=== PATIENT | male | born 1990 | race Caucasian/White ===

== ENCOUNTER → 2018-11-28 | Outpatient (CLI) | payer BC ==
[2018-11-28 14:09] VITALS: BP 142/82; PULSE 88; TEMP 98.3; BMI 74.0
--- NOTE | 2018-11-28 15:50 | P.HPBAR ---
Bariatric H&P - History & Physicial H&P Date: 11/28/18 History & Physicial: Visit/CC: initial bariatric consult Patient initial contact: Initial weight: 227.386 kg Initial weight in pounds: 501.30 Height: 5 ft 9 in Initial BMI: 74.0 Last weight: Current weight: 227.386 kg Current weight in pounds: 501.30 Current BMI: 74.0 [place] body weight (based on NIH guidelines): 72.575 kg Excess body weight loss: 0.0% The patient is a 28 year-old M who presents for Bariatric Assessment. Patient presents today for new patient bariatric evaluation. Patient has been considering weight loss surgery for many years. Patient at his heaviest was 545 pounds. Recently was 471. Patient is interested in sleeve gastrectomy. He has had 2 family members have answered bypass with associated postoperative complications. Went to a recent seminar with Dr. Patel. Patient suffers from hypertension and is on Hyzaar. Denies DVT or dysphagia. No GERD symptoms. No abdominal surgeries. BMI currently 74. Patient concerned he may have a upper abdominal wall hernia. He does feel a bulge there at times. Review of Systems The patient denies any acute changes in vision or hearing, no dysphagia or odynophagia, no chest pain or shortness of breath, no dysuria or hematuria, no headache, no runny nose, no rectal bleeding or melena, no unexplained weight loss Past Medical History Past Medical History: Hypertension, Osteoarthritis (OA) Additional Past Medical History / Comment(s): low back pain, bilateral hips (L>R), knees (R>L), and ankles (pt believes his issues are due to his weight) History of Any Multi-Drug Resistant Organisms: None Reported Past Surgical History: Adenoidectomy, Tonsillectomy Past Anesthesia/Blood Transfusion Reactions: No Reported Reaction Additional Past Anesthesia/Blood Transfusion Reaction / Comm: No blood transfusionto date Smoking Status: Current every day smoker Past Alcohol Use History: Rare Additional Past Alcohol Use History / Comment(s): started smoking at age 15, currently smokes 1/2 ppd. Past Drug Use History: None Reported - Past Family History Father Family Medical History: Cancer, Diabetes Mellitus, Hypertension Additional Family Medical History / Comment(s): Type 2 DM, throat cancer. Pts paternal grandfather had lung cancer, Type 2 DM, HTN. patients paternal uncle has CHF and Type 2 DM Mother Family Medical History: Cancer Additional Family Medical History / Comment(s): brain cancer Surgical - Exam Vital Signs Temp Pulse BP 98.3 F 88 142/82 11/28/18 13:54 11/28/18 13:54 11/28/18 13:54 Physical exam: General: Well-developed, well-nourished HEENT: Normocephalic, sclerae nonicteric Abdomen: Nontender, nondistended Extremities: No edema Neuro: Alert and oriented Bariatric Assessment & Plan (1) Morbid obesity with BMI of 70 and over, adult Narrative/Plan: 28-year-old male with severe morbid obesity. Patient clearly a good candidate for surgical weight loss procedures. Spent a lot of time with the patient discussing options of sleeve gastrectomy, gastric bypass, and biliopancreatic diversion. Patient remained consisted in sleeve gastrectomy knowing that the anticipated percentage of excess weight loss is somewhat less than the other 2 described procedures. The associated risks were likewise reviewed. We'll plan EGD at this time. Await primary care 1 or and psychiatric evaluation. Patient will follow-up back in the office with us after upcoming EGD is obtained. Status: Acute Bariatric Checklist Checklist: Plan: Checklist: EGD: 1. Hiatal hernia: 2. H. Pylori: HgbA1c: Vitamin D: Smoking: Current every day smoker Primary care physician referral: sadie Palomino Psychiatry clearance: Cardiology clearance: Sleep study: Diet journal: VTE risk score: VTE risk level: Rehab needs at discharge:
== END | disposition home or self-care (01) ==
LOC: BARWHC3 13:43 → EDAGE 14:00 → MERGE 14:00
PROVIDERS: ATTEND Surgery
DX: E66.01 Morbid (severe) obesity due to excess calories (principal); I10 Essential (primary) hypertension; F17.200 Nicotine dependence, unspecified, uncomplicated; Z68.45 Body mass index [BMI] 70 or greater, adult
CPT/HCPCS: 99211

== ENCOUNTER → 2018-12-02 | Outpatient (CLI) | payer BC ==
[2018-12-02 15:05] LABS: HCT 51.2 % (39.0-53.0); MCH 30.6 pg (25.0-35.0); MCHC 33.2 g/dL (31.0-37.0); MCV 92.3 fL (80.0-100.0); Mean Platelet Volume 8.1; Platelet Count 225 k/uL (150-450); RBC 5.55 m/uL (4.30-5.90); WBC 11.6 k/uL (3.8-10.6)
[2018-12-02 20:09] LABS: Iron Saturation 46.48 (15.00-50.00)
[2018-12-02 20:17] LABS: Ferritin 149.1 ng/mL (22.0-322.0); Vitamin D 25 Hydroxy 18.7 ng/mL (30.0-100.0)
[2018-12-02 20:18] LABS: Albumin/Globulin Ratio 1.54 (1.60-3.17); Anion Gap 13.2 mmol/L (4.00-12.00); BUN/Creat Ratio 18.57 Ratio (12.00-20.00); Calcium 8.9 mg/dL (8.7-10.3); Carbon Dioxide 22.8 mmol/L (21.6-31.8); Globulin 2.6 g/dL (1.6-3.3); Potassium 3.9 mmol/L (3.5-5.5); Total Bilirubin 0.6 mg/dL (0.3-1.2); Total Protein 6.6 g/dL (6.2-8.2)
[2018-12-02 20:19] LABS: Folate, Serum >24.0 ng/mL
== END | disposition home or self-care (01) ==
LOC: LABWHC1 14:24
PROVIDERS: ATTEND Surgery
DX: E66.01 Morbid (severe) obesity due to excess calories (principal); D50.8 Other iron deficiency anemias; Z01.818 Encounter for other preprocedural examination
CPT/HCPCS: 36415; 80053; 82306; 82728; 82746; 83540; 83550; 84425; 85027; 93005

== ENCOUNTER 2018-12-30 11:51 | Day surgery (SDC) | payer BC ==
[2018-12-26 16:22] VITALS: BMI 71.7
[~2018-12-30 11:51] MED LIST: LACTATED RINGERS 1,000 ML IV SCH; LIDOCAINE 1% 20 ML VIAL (10MG/ML) FOR IV START INTRADERMA PRN
[2018-12-30 12:18] VITALS: TEMP 97.8
[2018-12-30] MEDS ORDERED: LACTATED RINGERS 1,000 ML IV ONE (12:18)
--- NOTE | 2018-12-30 13:09 | P.GSHP ---
History of Present Illness H&P Date: 12/30/18 Chief Complaint: Morbid obesity, presurgical Patient today for upper endoscopy. Patient is interested in sleeve gastrectomy. Denies dysphagia or GERD symptoms. He is concerned he may have a small upper abdominal wall hernia. BMI 72. Past Medical History Past Medical History: Hypertension, Osteoarthritis (OA) Additional Past Medical History / Comment(s): low back pain, History of Any Multi-Drug Resistant Organisms: None Reported Past Surgical History: Adenoidectomy, Tonsillectomy Past Anesthesia/Blood Transfusion Reactions: No Reported Reaction Additional Past Anesthesia/Blood Transfusion Reaction / Comment(s): No blood transfusionto date Smoking Status: Current every day smoker - Past Family History Father Family Medical History: Cancer, Diabetes Mellitus, Hypertension Additional Family Medical History / Comment(s): Type 2 DM, throat cancer. Pts paternal grandfather had lung cancer, Type 2 DM, HTN. patients paternal uncle has CHF and Type 2 DM Mother Family Medical History: Cancer Additional Family Medical History / Comment(s): brain cancer Medications and Allergies Home Medications Medication Instructions Recorded Confirmed Type Losartan/Hydrochlorothiazide 1 each PO DAILY 11/28/18 12/26/18 History [Hyzaar 100-25 Tablet] Multivit-Min/Folic/Vit K/Lycop 1 each PO DAILY 11/28/18 12/26/18 History [Men's Multivitamin Tablet] Ergocalciferol [Vitamin D2] 50,000 unit PO WE 12/26/18 12/26/18 History Testosterone [Testosterone 1.62% 1 packet TRANSDERM DAILY 12/26/18 12/26/18 History (2500 mg)] Allergies Allergy/AdvReac Type Severity Reaction Status Date / Time Penicillins Allergy Unknown Verified 12/26/18 16:08 Childhood Surgical - Exam Vital Signs Temp Pulse Resp BP Pulse Ox 97.8 F 87 18 148/74 98 12/30/18 12:17 12/30/18 12:17 12/30/18 12:17 12/30/18 12:17 12/30/18 12:17 Physical exam: General: Well-developed, well-nourished HEENT: Normocephalic, sclerae nonicteric Abdomen: Nontender, nondistended Extremities: No edema Neuro: Alert and oriented Assessment and Plan (1) Morbid obesity with BMI of 70 and over, adult Narrative/Plan: Will proceed with upper endoscopy at this time. Current Visit: No Status: Acute Code(s): E66.01 - MORBID (SEVERE) OBESITY DUE TO EXCESS CALORIES; Z68.45 - BODY MASS INDEX (BMI) 70 OR GREATER, ADULT SNOMED Code(s): 422529548
[2018-12-30] MEDS ORDERED: PROPOFOL 10 MG/ML 20 ML VIAL IV ONE (13:14)
[2018-12-30] MEDS ORDERED: LIDOCAINE 1% INJ 10MG/ML (20 ML MDV) ONE (13:14)
[2018-12-30] MEDS ORDERED: MIDAZOLAM 2 MG/2 ML VIAL ONE (13:14)
--- NOTE | 2018-12-30 13:34 | P.PCN ---
Date of Procedure: 12/30/18 Procedure(s) Performed: Preoperative Dx: Morbid obesity, presurgical Postoperative Dx: Diffuse gastritis Procedure: EGD with Bx Anesthesia: Sedation Endoscopist: Dr. Schofield Specimens: Antrum, body Endoscopic Procedure: The patient was on the endoscopy table in the left decubitus position. The Olympus gastroscope was inserted into the oropharynx and passed under direct visualization to the region of the third portion of the duodenum. From that point the scope was slowly withdrawn inspecting all surfac es carefully. There were no neoplastic inflammatory or polypoid lesions throughout the duodenum. The pylorus was widely patent. The stomach was carefully inspected. There was fuse gastritis present. A biopsy of the body of the stomach and of the antrum of the stomach took place. Retroflexion revealed a normal hiatus. The esophagus was then carefully examined. There were no neoplastic inflammatory or polypoid lesions throughout the visualized esophagus. The patient was then taken to the recovery room in stable condition per anesthesia guidelines. Recommendations: Await biopsies results. Begin antiacid therapy. Follow-up in the bariatric center one month.
[2018-12-30 14:29] VITALS: RESP 18
[2018-12-30 15:05] VITALS: BP 134/76; PULSE 80
== END 2018-12-30 14:50 | disposition home or self-care (01) ==
LOC: ORWHC2ENDO 11:51
PROVIDERS: ATTEND Surgery
DX: E66.01 Morbid (severe) obesity due to excess calories (principal); Z68.45 Body mass index [BMI] 70 or greater, adult; F17.200 Nicotine dependence, unspecified, uncomplicated; I10 Essential (primary) hypertension; K29.70 Gastritis, unspecified, without bleeding; M19.90 Unspecified osteoarthritis, unspecified site; Z79.899 Other long term (current) drug therapy; Z82.49 Family history of ischemic heart disease and other diseases of the circulatory system; Z88.0 Allergy status to penicillin; Z80.1 Family history of malignant neoplasm of trachea, bronchus and lung; Z79.890 Hormone replacement therapy; B96.81 Helicobacter pylori [H. pylori] as the cause of diseases classified elsewhere
CPT/HCPCS: 88305; 88342; 43239; J2250; J2001; J2704

== ENCOUNTER → 2018-12-30 | Outpatient (CLI) | payer BC ==
[2018-12-30 13:12] VITALS: BMI 74.6
== END ==
LOC: BARWHC3 08:53
PROVIDERS: ATTEND Surgery
DX: E66.01 Morbid (severe) obesity due to excess calories (principal); Z68.45 Body mass index [BMI] 70 or greater, adult
CPT/HCPCS: 97804

== ENCOUNTER → 2019-01-28 | Outpatient (CLI) | payer BC ==
[2019-01-28 15:25] VITALS: BP 152/79; PULSE 79; RESP 16; TEMP 98.1; BMI 75.5
--- NOTE | 2019-01-28 16:56 | P.BASOAP ---
Subjective Progress Note Date: 01/28/19 Principal diagnosis: Morbid obesity Patient returns after recent EGD as part of his preoperative workup. Patient was found to have diffuse gastritis. On biopsy the patient was found to have significant H. pylori. The patient recently completed his antibiotic course within the last several days. Feels well. No heartburn. No other changes to his history. Objective - Vital Signs Vital signs: Vital Signs Temp 98.1 F 01/28/19 15:22 Pulse 79 01/28/19 15:22 Resp 16 01/28/19 15:22 BP 152/79 01/28/19 15:22 Pulse Ox Intake & Output 01/27/19 01/28/19 01/28/19 18:59 06:59 18:59 Weight 232.041 kg - Exam Abdomen: Soft, nontender, nondistended Assessment/Plan (1) Helicobacter pylori (H. pylori) infection Narrative/Plan: Patient doing well at this time. He and I reviewed the surgical consent form in detail. Risks and benefits discussed. All questions answered. We'll plan follow-up in 1 month from now and we'll obtained urea breath test at that time. Assuming H. pylori is eradicated Will plan sleeve gastrectomy in March. The risks of bleeding, infection, stenosis, stricture, leak, abscess, fistula formation, peritonitis, poor weight loss, reflux, vomiting, conversion to an open procedure, aborting sleeve gastrectomy, [place], PE, DVT, and were discussed. The patient understands and wishes to proceed. Plan: Date: 01/28/19 Initial Weight: 227.386 kg Initial BMI: 74.0 Current Weight: 232.041 kg Current BMI: 75.5 Type of Surgery: Total Volume in Band: Previous Volume: Volume Removed: Volume Added: Band Size:
== END | disposition home or self-care (01) ==
LOC: BARWHC3 14:58
PROVIDERS: ATTEND Surgery
DX: E66.01 Morbid (severe) obesity due to excess calories (principal); A04.8 Other specified bacterial intestinal infections; B96.81 Helicobacter pylori [H. pylori] as the cause of diseases classified elsewhere
CPT/HCPCS: 99211

== ENCOUNTER → 2019-03-29 | Outpatient (CLI) | payer BC ==
[2019-03-29 11:38] LABS: Basophils # (A) 0.1 k/uL (0-0.2); Basophils % (A) 1 %; Eosinophils # (A) 0.1 k/uL (0-0.7); Eosinophils % (A) 1 %; HCT 54.2 % (39.0-53.0); HGB 18.5 gm/dL (13.0-17.5); Lymphocytes # (A) 2.1 k/uL (1.0-4.8); Lymphocytes % (A) 22 %; MCH 30.2 pg (25.0-35.0); MCHC 34.1 g/dL (31.0-37.0); MCV 88.6 fL (80.0-100.0); Monocytes # (A) 0.5 k/uL (0-1.0); Monocytes % (A) 5 %; Neutrophils # (A) 6.7 k/uL (1.3-7.7); Neutrophils % (A) 69 %; Platelet Count 224 k/uL (150-450); RBC 6.12 m/uL (4.30-5.90); WBC 9.7 k/uL (3.8-10.6)
[2019-03-29 12:08] LABS: ALT 54 U/L (4-49); AST 49 U/L (17-59); African American GFR (CKD) >90 (>60 ml/min/1.73 sqM); Albumin 4.3 g/dL (3.5-5.0); Alkaline Phosphatase 81 U/L (38-126); Anion Gap 14 mmol/L; Blood Urea Nitrogen 14 mg/dL (9-20); Calcium 9.2 mg/dL (8.4-10.2); Carbon Dioxide 20 mmol/L (22-30); Chloride 103 mmol/L (98-107); Glucose 106 mg/dL (74-99); Non-African American GFR(CKD) >90 (>60 ml/min/1.73 sqM); Sodium 137 mmol/L (137-145); Total Bilirubin 1.3 mg/dL (0.2-1.3); Total Protein 8.1 g/dL (6.3-8.2)
== END | disposition home or self-care (01) ==
LOC: LABPAT 11:08
PROVIDERS: ATTEND Surgery
DX: Z01.812 Encounter for preprocedural laboratory examination (principal)
CPT/HCPCS: 36415; 80053; 85025

== ENCOUNTER 2019-04-07 11:28 | Inpatient (IN) | payer BC ==
[~2019-04-07 11:28] MED LIST changes: +ACETAMINOPHEN TAB 500 MG TAB PO ONE; +ENOXAPARIN 40 MG/0.4 ML SYRINGE SQ ONE; +HYDROmorphone 0.5 MG/0.5 ML SYRINGE IVP PRN; -LACTATED RINGERS 1,000 ML IV SCH; -LIDOCAINE 1% 20 ML VIAL (10MG/ML) FOR IV START INTRADERMA PRN; +MIDAZOLAM 2 MG/2 ML VIAL IV PRN; +ONDANSETRON 4 MG/2 ML VIAL IVP ONE; +ceFAZolin 3 GM in SODIUM CHLORIDE 0.9% 100 ML IVPB ONE
[2019-04-07] MEDS: LACTATED RINGERS 1,000 ML IV SCH (12:02)
[2019-04-07 12:06] LABS: Glucose,Whole Blood 96 mg/dL (75-99)
[2019-04-07] MEDS ORDERED: LIDOCAINE 1% 20 ML VIAL (10MG/ML) FOR IV START INTRADERMA ONE (12:21)
--- NOTE | 2019-04-07 12:22 | P.GSHP ---
History of Present Illness H&P Date: 04/07/19 Chief Complaint: Morbid obesity Patient here today for elective sleeve gastrectomy. Patient has been interested in weight loss surgery for the past several years. He has been able to lose some weight on his own but not able to keep it off or continue with his weight loss. He is not interested in gastric bypass since he has had family members developed postoperative complications. Applications of his from hypertension. No history of DVT or dysphagia. No reflux symptoms currently. He is concerned about feeling a bulge in the upper abdomen at times. Patient underwent EGD and was found to have significant gastritis with H. pylori. The patient has completed his antibiotic therapy. Urea breath test normal posttreatment. Past Medical History Past Medical History: Hypertension, Osteoarthritis (OA) Additional Past Medical History / Comment(s): low back pain, bilateral hips (L>R), knees (R>L), and ankles (pt believes his issues are due to his weight) History of Any Multi-Drug Resistant Organisms: None Reported Past Surgical History: Adenoidectomy, Tonsillectomy Additional Past Surgical History / Comment(s): EGD Past Anesthesia/Blood Transfusion Reactions: No Reported Reaction Additional Past Anesthesia/Blood Transfusion Reaction / Comment(s): No blood transfusionto date Smoking Status: Current every day smoker Additional Past Alcohol Use History / Comment(s): started smoking at age 15, currently smokes 1/2 ppd. - Past Family History Father Family Medical History: Cancer, Diabetes Mellitus, Hypertension Additional Family Medical History / Comment(s): Type 2 DM, throat cancer. Pts paternal grandfather had lung cancer, Type 2 DM, HTN. patients paternal uncle has CHF and Type 2 DM Mother Family Medical History: Cancer Additional Family Medical History / Comment(s): brain cancer. mat grandma brain cancer Medications and Allergies Home Medications Medication Instructions Recorded Confirmed Type Losartan/Hydrochlorothiazide 1 each PO DAILY 11/28/18 03/28/19 History [Hyzaar 100-25 Tablet] Ergocalciferol [Vitamin D2] 50,000 unit PO WE 12/26/18 03/28/19 History Allergies Allergy/AdvReac Type Severity Reaction Status Date / Time Penicillins Allergy Unknown Verified 03/28/19 14:16 Childhood Surgical - Exam Vital Signs Temp Pulse Resp BP Pulse Ox 97.0 F L 81 16 158/67 95 04/07/19 11:56 04/07/19 11:56 04/07/19 11:56 04/07/19 11:56 04/07/19 11:56 Physical exam: General: Well-developed, well-nourished HEENT: Normocephalic, sclerae nonicteric Abdomen: Nontender, nondistended Extremities: No edema Neuro: Alert and oriented Assessment and Plan (1) Morbid obesity with BMI of 70 and over, adult Narrative/Plan: 29-year-old male with morbid obesity. Patient has done with his preoperative weight loss. We'll proceed with sleeve gastrectomy at this time. The risks of bleeding, infection, stenosis, stricture, leak, abscess, fistula formation, pe ritonitis, poor weight loss, reflux, vomiting, conversion to an open procedure, aborting sleeve gastrectomy, [place], PE, DVT, and were discussed. The patient understands and wishes to proceed. Current Visit: No Status: Acute Code(s): E66.01 - MORBID (SEVERE) OBESITY DUE TO EXCESS CALORIES; Z68.45 - BODY MASS INDEX (BMI) 70 OR GREATER, ADULT SNOMED Code(s): 717249815
[2019-04-07] MEDS ORDERED: KETAMINE 10 MG/ML 20 ML VIAL ONE (12:29)
[2019-04-07] MEDS ORDERED: LIDOCAINE 1% INJ 10MG/ML (20 ML MDV) ONE (12:29)
[2019-04-07] MEDS ORDERED: MIDAZOLAM 2 MG/2 ML VIAL ONE (12:29)
[2019-04-07] MEDS ORDERED: ePHEDrine SULFATE/0.9% NACL/PF 50 MG/5 ML SYRINGE IV ONE (12:29)
[2019-04-07] MEDS ORDERED: NEOSTIGMINE 1 MG/ML 10 ML VIAL ONE (12:29)
[2019-04-07] MEDS ORDERED: SUCCINYLCHOLINE CHLORIDE 100 MG/5 ML SYR IV ONE (12:29)
[2019-04-07] MEDS ORDERED: ROCURONIUM BROMIDE 10 MG/ML 10 ML VIAL IV ONE (12:29)
[2019-04-07] MEDS ORDERED: GLYCOPYRROLATE 0.2 MG/ML 2 ML VIAL ONE (12:29)
[2019-04-07] MEDS ORDERED: HYDROmorphone (PF) 1 MG/ML ONE (12:29)
[2019-04-07] MEDS ORDERED: PROPOFOL 10 MG/ML 20 ML VIAL IV ONE (12:29)
[2019-04-07] MEDS ORDERED: fentaNYL (PF) 50 MCG/ML 2 ML AMP ONE (12:29)
[2019-04-07] MEDS ORDERED: BUPIVACAINE (PF) 0.25% 30 ML VIAL SQ ONE ×2 (13:16)
[2019-04-07] MEDS ORDERED: LACTATED RINGERS 1,000 ML IV ONE (13:31)
[2019-04-07] MEDS ORDERED: ONDANSETRON 4 MG/2 ML VIAL IVP ONE (15:15)
[2019-04-07] MEDS ORDERED: diphenhydrAMINE 50 MG/ML 1 ML VIAL IVP ONE (15:26)
[2019-04-07] MEDS ORDERED: diphenhydrAMINE 50 MG/ML 1 ML VIAL IVP PRN (15:38)
[2019-04-07] MEDS ORDERED: NALOXONE 0.4 MG/ML 1 ML VIAL IV PRN (15:38)
--- NOTE | 2019-04-07 15:43 | P.OP ---
Date of Procedure: 04/07/19 Procedure(s) Performed: PREOPERATIVE DIAGNOSIS: Morbid obesity, hypertension POSTOPERATIVE DIAGNOSIS: Same PROCEDURE: Laparoscopic sleeve gastrectomy SURGEON: Kanwal EBL: Minimal ANESTHESIA: General COMPLICATIONS: None OPERATIVE PROCEDURE: Patient was placed in the operating table in the supine position. He was placed under general anesthesia at that time. The abdomen was prepped and draped in sterile fashion after the patient was placed in lithotomy. A 5 mm optical trocar was used to enter the abdominal cavity in the left upper quadrant. Insufflation took place to 15 millimeters mercury. An additional right subxiphoid 5 mm trocar was then placed under direct visualization and then removed. 2 additional 5 mm trochars were placed in the right upper quadrant and left upper quadrant under direct visualization and a 15 mm trocar in the supraumbilical location. The liver was retracted using a medium Moisés liver retractor through the right subxiphoid trocar site. The patient's liver was fairly large and floppy. In order to hold the liver properly an additional 5 mm trocar was placed in the left subcostal location and a straight liver retractor was advanced through that. The straight liver retractor was then placed between the Moisés and the left lobe of the liver creating a 3 prong retraction on the liver. This elevated the liver quite nicely. The hiatus was inspected. The patient had no visible hiatal hernia At that point I moved to the mid aspect of the greater curvature the stomach. The short gastric vasculature was divided using a LigaSure device proximally. I then switched and divided the short gastrics distally to a 3-4 cm from the pylorus. The dissection took place up to the left diaphragmatic crura at that point. The posterior short gastrics were likewise divided using the LigaSure device. Once the stomach was fully mobilized the blunt tipped 40-Tamazight bougie dilator was advanced into the stomach and advanced all the way to the prepyloric location. A black echelon 60 stapler without seen guard was utilized and fired tangentially across the antrum taking care to avoid narrowing at the incisura angularis. Subsequent firings of the stapler took place. An additional 60 load with seam guard was utilized at that time. Following that a total of 5 green echelon 60 staplers with seam guard took place proximally staying on the outer edge of our dilator. The oral gastric tube was reinserted. The stomach was insufflated with approximately 100 mL of methylene blue. No evidence of leak or obstruction was seen. The distal aspect of the sleeve was then reapproximated to the gastrosplenic and gastrocolic ligament using a short running 2-0 strata fix suture. This was done to prevent kinking or twisting of the sleeve. Tisseel fibrin glue was used along the length of the staple line at that time. The stomach remnant was removed from the 15 mm trocar site without difficulty. The fascia at the 15 more site was closed using interrupted 0 Vicryl sutures with the laparoscopic suture passer and Moiz Ceci technique. The insufflation was evacuated. The skin at all 6 incisions were closed using 4-0 Monocryl sutures. Skin glue was then applied. DISPOSITION: Stable to recovery room
[2019-04-07] MEDS ORDERED: DEXAMETHASONE SOD PHOSPHATE 4 MG/ML 1 ML VIAL IV ONE (16:01)
[2019-04-07] MEDS ORDERED: SCOPOLAMINE 1.5MG/72HR PATCH TRANSDERM ONE (16:02)
[2019-04-07] MEDS ORDERED: ACETAMINOPHEN IV (For NPO) 1,000 MG in EMPTY BAG 1 BAG IVPB ONE (18:00)
[2019-04-07] MEDS: ALBUTEROL NEBULIZED 2.5 MG/3 ML INHALATION SCH ×2 (18:34)
--- NOTE | 2019-04-07 19:38 | P.CONS ---
History of Present Illness - Reason for Consult Consult date: 04/07/19 Medical management Requesting physician: Todd Franco - Chief Complaint Status post gastric sleeve, hypertension, morbid obesity, severe arthritis - History of Present Illness 29-year-old male with history of morbid obesity one of Dr. Palomino patient with history of hypertension chronic lower back pain who had the chronic anxiety and panic attack has been seen Dr. Mann for many years was referred to Dr. franco for gastric sleeve and was study for the last few month and clear for surgery by Dr. Mann patient ended up going for gastric sleeve today with Dr. manfred weaver with no major complication was admitted to the floor afterward he is doing well mildly drowsy pain is under control and hemodynamically stable continue to have slight abdominal pain around the incision site. Review of Systems CONSTITUTIONAL: Well-developed no acute respiratory distress. Morbidly obese EYES: No icterus sclerae, no conjunctivitis. EARS, NOSE, MOUTH, THROAT, and FACE: No sore throat, lymphadenopathy, carotid bruits or deformity. RESPIRATORY: No SOB cough or wheezes. CARDIOVASCULAR: No CP, Palpitation, PND, Orthopnea, or angina. GASTROINTESTINAL: No Abd pain, Nausea or vomiting, no Diarrhea or constipation, No GI Bleed, no distention or masses. Mild abdominal pain around the incision site. GENITOURINARY: Negative for Hematuria or UTI, no kidney stones. INTEGUMENT/BREAST: Negative for any muscular injury with mild osteoarthritis.. HEMATOLOGIC/LYMPHATIC: Negative for bleed or purpura. MUSCULOSKELTAL: Generalized arthralgia and myalgia. NEURLOGICAL: No LOC, Sz or syncope, blurred vision dizziness or abnormality.. BEHAVIORAL/PSYCH: Negative. ENDOCRINE: Negative. Past Medical History Past Medical History: Hypertension, Osteoarthritis (OA) Additional Past Medical History / Comment(s): low back pain, bilateral hips (L>R), knees (R>L), and ankles (pt believes his issues are due to his weight) History of Any Multi-Drug Resistant Organisms: None Reported Past Surgical History: Adenoidectomy, Tonsillectomy Additional Past Surgical History / Comment(s): EGD Past Anesthesia/Blood Transfusion Reactions: No Reported Reaction Additional Past Anesthesia/Blood Transfusion Reaction / Comm: No blood transfusion to date Past Psychological History: Anxiety Additional Psychological History / Comment(s): anxiety when in hospital and waiting Smoking Status: Current every day smoker Past Alcohol Use History: Rare Additional Past Alcohol Use History / Comment(s): started smoking at age 15, currently smokes 1/2 ppd. Quit one month ago Past Drug Use History: None Reported - Past Family History Father Family Medical History: Cancer, Diabetes Mellitus, Hypertension Additional Family Medical History / Comment(s): Type 2 DM, throat cancer. Pts paternal grandfather had lung cancer, Type 2 DM, HTN. patients paternal uncle has CHF and Type 2 DM Mother Family Medical History: Cancer Additional Family Medical History / Comment(s): brain cancer. mat grandma brain cancer Medications and Allergies Home Medications Medication Instructions Recorded Confirmed Type Losartan/Hydrochlorothiazide 1 each PO DAILY 11/28/18 04/07/19 History [Hyzaar 100-25 Tablet] Ergocalciferol [Vitamin D2] 50,000 unit PO WE 12/26/18 04/07/19 History Allergies Allergy/AdvReac Type Severity Reaction Status Date / Time Penicillins Allergy Unknown Verified 03/28/19 14:16 Childhood Physical Exam Vitals: Vital Signs Temp Pulse Pulse Pulse Pulse Resp BP 04/07/19 18:45 84 04/07/19 18:40 04/07/19 18:35 79 16 04/07/19 18:17 83 04/07/19 18:02 90 04/07/19 17:52 91 04/07/19 17:36 97.6 F 83 04/07/19 17:00 78 22 04/07/19 16:30 79 22 04/07/19 16:15 81 22 04/07/19 16:00 78 22 04/07/19 15:45 78 22 04/07/19 15:30 88 22 04/07/19 15:15 85 22 04/07/19 15:07 97.9 F 85 21 04/07/19 11:56 97.0 F L 81 16 158/67 BP Pulse Ox 04/07/19 18:45 04/07/19 18:40 96 04/07/19 18:35 94 L 04/07/19 18:17 142/72 93 L 04/07/19 18:02 135/99 93 L 04/07/19 17:52 146/89 93 L 04/07/19 17:36 125/66 94 L 04/07/19 17:00 144/66 93 L 04/07/19 16:30 141/62 93 L 04/07/19 16:15 142/62 94 L 04/07/19 16:00 144/66 95 04/07/19 15:45 148/63 95 04/07/19 15:30 156/67 95 04/07/19 15:15 128/63 97 04/07/19 15:07 134/65 97 04/07/19 11:56 95 Intake and Output 04/07/19 04/07/19 04/07/19 06:59 14:59 22:59 Intake Total 1900 400 Output Total 10 500 Balance 1890 -100 Intake: IV 1900 400 Output: Urine 500 Estimated Blood Loss 10 Other: Weight 214 kg General Appearance: Alert, cooperative, no distress, appears stated age. Morbidly obese Neck HEENT: Supple, no lymphadenopathy, no thyroid enlargement, no carotid bruits. Lungs: Clear to auscultation without crackles or wheezes no rhonchi, no deformity. Chest Wall: Decrease expansion with deep inspiration no tenderness and no deformity was found on exam, no costochondral pain or discomfort. Heart: Regular rate and rhythm, S1, S2 normal, no murmur, rub or gallop. Back: Symmetric, no curvature, ROM normal, no CVA tenderness. Abdomen: Soft positive bowel sound no organomegaly slight discomfort and tenderness around the incision site from his gastric sleeve. Extremities: Trace edema and generalized arthralgia both knees and hips significantly with slight discoloration from the knee down Pulses: 2+ and symmetric. Skin: Skin color, texture, tugor normal, no rashes or lesions. Neurologic: Alert oriented x3 cranial nerves II through XII intact, no motor deficit, no abnormal balance or gait. Assessment and Plan Plan: 1 post gastric sleeve: Doing well after surgery resume home meds, incentive spirometry, continue to watch patient hemodynamic status continued to control his pain and increased mobility ESTIVEN. 2 hypertension: Continue medication with losartan hydrochlorothiazide 100/25 g a day. 3 severe arthritis both knees and hips has been on Tylenol and ibuprofen which should be held for now. 4 vitamin D deficiency: Has been on yobani-vitamin D on weekly basis. 5 DVT prophylaxis: Patient will be on Lovenox 60 mg every 12 hours. 6 GI prophylaxis: Patient will continue on pantoprazole IV. CODE STATUS: Full code. Dr. shearer thank you much for the consult for can be any further help to please let me know.
[2019-04-07] MEDS: HYDROmorphone 1 MG/ML 1 ML SYRINGE IVP PRN ×2 (20:13→23:17)
[2019-04-07] MEDS: 0.9% NACL WITH KCL 20 MEQ/L 1,000 ML IV SCH (20:14)
[2019-04-07] MEDS: SIMETHICONE 40 MG/0.6 ML DROPS 2,000 MG/30 ML BOTTLE PO PRN (20:14)
[2019-04-08] MEDS: HYDROmorphone 1 MG/ML 1 ML SYRINGE IVP PRN ×3 (02:42→20:18)
[2019-04-08] MEDS: 0.9% NACL WITH KCL 20 MEQ/L 1,000 ML IV SCH ×2 (02:43→08:38)
[2019-04-08] MEDS: SIMETHICONE 40 MG/0.6 ML DROPS 2,000 MG/30 ML BOTTLE PO PRN ×3 (02:43→20:25)
[2019-04-08] MEDS: ENOXAPARIN 60 MG/0.6 ML SYRINGE SQ SCH ×2 (02:43→13:26)
[2019-04-08] MEDS: HYOSCYAMINE ORAL DROPS 1.875 MG/15 ML BOTTLE PO PRN ×3 (02:44→20:26)
[2019-04-08] MEDS: LACTATED RINGERS 1,000 ML IV SCH (05:46)
[2019-04-08 07:56] LABS: Basophils # (A) 0.2 k/uL (0-0.2); Basophils % (A) 1 %; Eosinophils # (A) 0.1 k/uL (0-0.7); Eosinophils % (A) 0 %; HCT 53.5 % (39.0-53.0); HGB 17.3 gm/dL (13.0-17.5); Lymphocytes % (A) 6 %; MCH 29.1 pg (25.0-35.0); MCHC 32.3 g/dL (31.0-37.0); MCV 90.1 fL (80.0-100.0); Mean Platelet Volume 9.4; Monocytes % (A) 6 %; Neutrophils # (A) 14.9 k/uL (1.3-7.7); Neutrophils % (A) 86 %; Platelet Count 209 k/uL (150-450); RBC 5.93 m/uL (4.30-5.90); RDW 13.4 % (11.5-15.5); WBC 17.3 k/uL (3.8-10.6)
[2019-04-08] MEDS: ALBUTEROL NEBULIZED 2.5 MG/3 ML INHALATION SCH ×4 (07:56→19:45)
[2019-04-08 08:14] LABS: African American GFR (CKD) >90 (>60 ml/min/1.73 sqM); Anion Gap 12 mmol/L; Blood Urea Nitrogen 11 mg/dL (9-20); Calcium 8.8 mg/dL (8.4-10.2); Carbon Dioxide 24 mmol/L (22-30); Chloride 105 mmol/L (98-107); Magnesium 1.9 mg/dL (1.6-2.3); Non-African American GFR(CKD) >90 (>60 ml/min/1.73 sqM); Phosphorus 4.3 mg/dL (2.5-4.5); Sodium 141 mmol/L (137-145)
[2019-04-08] MEDS: LOSARTAN-HCTZ 50-12.5 MG 1 EACH TAB PO SCH (08:39)
--- NOTE | 2019-04-08 11:32 | P.PN ---
<AlbertsArabella Nyla - Last Filed: 04/08/19 11:33> Subjective Progress Note Date: 04/08/19 CHIEF COMPLAINT: Morbid obesity HISTORY OF PRESENT ILLNESS: 29-year-old male who underwent laparoscopic sleeve gastrectomy. POD #1. Patient has been tolerating ice chips. UGI is pending. No n ausea or vomiting. Pain is controlled on current medications. He does complain of gas pains. Using incentive spirometer and pulling 2000 mL. Has been ambulating in the hallway. Vital signs stable. He is afebrile. WBC 17.3. PHYSICAL EXAM: VITAL SIGNS: Reviewed. GENERAL: Well-developed in no acute distress. HEENT: No sclera icterus. Extraocular movements grossly intact. Moist buccal mucosa. Head is atraumatic, normocephalic. ABDOMEN: Soft. Obese. Nondistended. Appropriate surgical tenderness. Surgical sites clean dry and intact without drainage. NEUROLOGIC: Alert and oriented. Cranial nerves II through XII grossly intact. ASSESSMENT: 1. Morbid obesity, status post laparoscopic sleeve gastrectomy PLAN: 1. Await results of the esophagram. Begin clear liquid diet pending results 2. Pain control 3. Incentive spirometry 4. Increase activity as tolerated 5. Monitor WBC. Repeat in a.m. Nurse practitioner note has been reviewed by physician. Signing provider agrees with the documented findings, assessment, and plan of care. Objective - Vital Signs Vital signs: Vital Signs Temp 97.9 F 04/08/19 07:00 Pulse 68 04/08/19 11:19 Resp 18 04/08/19 07:00 BP 132/65 04/08/19 07:00 Pulse Ox 90 L 04/08/19 08:00 Intake & Output 04/07/19 04/08/19 04/08/19 18:59 06:59 18:59 Intake Total 2300 1215 Output Total 510 1150 Balance 1790 65 Weight 214 kg Intake: IV 2300 Intake, IV Titration 1200 Amount 0.9% NaCl with KCl 20 Meq 1200 /l 1,000 ml @ 100 mls/hr IV .BY DURATION DARREN Rx#: [id number] Oral 15 Output: Urine 500 1150 Estimated Blood Loss 10 Other: Voiding Method Toilet Toilet # Voids 1 - Labs CBC & Chem 7: 04/08/19 07:32 04/08/19 07:32 Labs: Abnormal Lab Results - Last 24 Hours (Table) 04/08/19 Range/Units 07:32 WBC 17.3 H (3.8-10.6) k/uL RBC 5.93 H (4.30-5.90) m/uL Hct 53.5 H (39.0-53.0) % Neutrophils # 14.9 H (1.3-7.7) k/uL <Dee Dee Schofieldony - Last Filed: 04/08/19 21:29> Objective - Vital Signs Vital signs: Vital Signs Temp 98.3 F 04/08/19 19:17 Pulse 67 04/08/19 19:17 Resp 16 04/08/19 19:17 BP 162/72 04/08/19 19:17 Pulse Ox 94 L 04/08/19 19:17 Intake & Output 04/08/19 04/08/19 04/09/19 06:59 18:59 06:59 Intake Total 1215 400 Output Total 1150 680 Balance 65 -280 Weight 214 kg Intake: Intake, IV Titration 1200 400 Amount 0.9% NaCl with KCl 20 Meq 1200 400 /l 1,000 ml @ 100 mls/hr IV .BY DURATION DARREN Rx#: [id number] Oral 15 Output: Urine 1150 680 Other: Voiding Method Toilet Toilet # Voids 1 2 - Labs CBC & Chem 7: 04/08/19 07:32 04/08/19 07:32 Labs: Abnormal Lab Results - Last 24 Hours (Table) 04/08/19 Range/Units 07:32 WBC 17.3 H (3.8-10.6) k/uL RBC 5.93 H (4.30-5.90) m/uL Hct 53.5 H (39.0-53.0) % Neutrophils # 14.9 H (1.3-7.7) k/uL Assessment and Plan (1) Morbid obesity with BMI of 70 and over, adult Current Visit: No Status: Acute Code(s): E66.01 - MORBID (SEVERE) OBESITY DUE TO EXCESS CALORIES; Z68.45 - BODY MASS INDEX (BMI) 70 OR GREATER, ADULT SNOMED Code(s): 073281948
[2019-04-08] MEDS: 1: MVI, ADULT NO.4 WITH VIT K 10 ML, THIAMINE 100 MG, FOLIC ACID 1 MG, POTASSIUM CHLORID IV SCH ×12 (11:33→22:10)
[2019-04-08] MEDS ORDERED: HYDROcodone/APAP 5-325MG 1 EACH TAB PO PRN (11:33)
[2019-04-08] MEDS: PANTOPRAZOLE 40 MG/10 ML VIAL IV SCH (11:34)
[2019-04-08] MEDS: KETOROLAC 30 MG/ML 1 ML VIAL IVP PRN ×2 (13:26→22:17)
[2019-04-08 13:36] VITALS: BMI 67.6
--- NOTE | 2019-04-08 13:42 | P.PN ---
Subjective Progress Note Date: 04/08/19 29-year-old male with history of morbid obesity one of Dr. Palomino patient with history of hypertension chronic lower back pain who had the chronic anxiety and panic attack has been seen Dr. Mann for many years was referred to Dr. franco for gastric sleeve and was study for the last few month and clear for surgery by Dr. Mann patient ended up going for gastric sleeve today with Dr. shearer successfully with no major complication was admitted to the floor afterward he is doing well mildly drowsy pain is under control and hemodynamically stable continue to have slight abdominal pain around the incision site. 04/08: Patient is seen on postop day #1. He denies any nausea or vomiting. He is tolerating ice chips. He has not had a bowel movement. He is using incentive spirometry. He is scheduled for upper GI today. Patient has been afebrile, heart rate 96, blood pressure 132/65, pulse ox 90% on room air. WBC is 17.3, hemoglobin 17.3, platelet count 209. Electrolytes and renal function within normal limits. Review of Systems CONSTITUTIONAL: Well-developed no acute respiratory distress. Morbidly obese, denies fever, denies chills EYES: No icterus sclerae, no conjunctivitis. EARS, NOSE, MOUTH, THROAT, and FACE: No sore throat, lymphadenopathy, carotid bruits or deformity. RESPIRATORY: No SOB cough or wheezes. CARDIOVASCULAR: No CP, Palpitation, PND, Orthopnea, or angina. GASTROINTESTINAL: No Abd pain, Nausea or vomiting, no Diarrhea or constipation, No GI Bleed, no distention or masses. Mild abdominal pain around the incision site. GENITOURINARY: Negative for Hematuria or UTI, no kidney stones. INTEGUMENT/BREAST: Negative for any muscular injury with mild osteoarthritis.. HEMATOLOGIC/LYMPHATIC: Negative for bleed or purpura. MUSCULOSKELTAL: Generalized arthralgia and myalgia. NEURLOGICAL: No LOC, Sz or syncope, blurred vision dizziness or abnormality.. BEHAVIORAL/PSYCH: Negative. ENDOCRINE: Negative. Objective - Vital Signs Vital signs: Vital Signs Temp 97.9 F 04/08/19 07:00 Pulse 92 04/08/19 08:06 Resp 18 04/08/19 07:00 BP 132/65 04/08/19 07:00 Pulse Ox 90 L 04/08/19 08:00 Intake & Output 04/07/19 04/08/19 04/08/19 18:59 06:59 18:59 Intake Total 2300 1215 Output Total 510 1150 Balance 1790 65 Weight 214 kg Intake: IV 2300 Intake, IV Titration 1200 Amount 0.9% NaCl with KCl 20 Meq 1200 /l 1,000 ml @ 100 mls/hr IV .BY DURATION DARREN Rx#: [id number] Oral 15 Output: Urine 500 1150 Estimated Blood Loss 10 Other: Voiding Method Toilet Toilet # Voids 1 - Exam General Appearance: Alert, cooperative, no distress, appears stated age. Morbidly obese Neck HEENT: Supple, no lymphadenopathy, no thyroid enlargement, no carotid bruits. Lungs: Clear to auscultation without crackles or wheezes no rhonchi, no deformity. Chest Wall: Decrease expansion with deep inspiration no tenderness and no deformity was found on exam, no costochondral pain or discomfort. Heart: Regular rate and rhythm, S1, S2 normal, no murmur, rub or gallop. Back: Symmetric, no curvature, ROM normal, no CVA tenderness. Abdomen: Soft positive bowel sound no organomegaly slight discomfort and tenderness around the incision site from his gastric sleeve. No significant drainage. Extremities: Trace edema and generalized arthralgia both knees and hips significantly with slight discoloration from the knee down Pulses: 2+ and symmetric. Skin: Skin color, texture, tugor normal, no rashes or lesions. Neurologic: Alert oriented x3 cranial nerves II through XII intact, no motor deficit, no abnormal balance or gait. - Labs CBC & Chem 7: 04/08/19 07:32 04/08/19 07:32 Labs: Abnormal Lab Results - Last 24 Hours (Table) 04/08/19 Range/Units 07:32 WBC 17.3 H (3.8-10.6) k/uL RBC 5.93 H (4.30-5.90) m/uL Hct 53.5 H (39.0-53.0) % Neutrophils # 14.9 H (1.3-7.7) k/uL Assessment and Plan Plan: 1. Postop day #1 gastric sleeve: Doing well after surgery resume home meds, incentive spirometry, continue to watch patient hemodynamic status continued to control his pain and increased mobility ESTIVEN. 2 hypertension: Continue medication with losartan hydrochlorothiazide 100/25 g a day. 3 severe arthritis both knees and hips has been on Tylenol and ibuprofen which should be held for now. 4 vitamin D deficiency: Has been on yobani-vitamin D on weekly basis. 5 DVT prophylaxis: Patient will be on Lovenox 60 mg every 12 hours. 6 GI prophylaxis: Patient will continue on pantoprazole IV. 7. Leukocytosis most likely secondary to Decadron given during all her CODE STATUS: Full code. Impression and plan of care have been directed as dictated by the signing physician. Akiko Cohen nurse practitioner acting as scribe for signing physician.
--- NOTE | 2019-04-08 14:03 | FL ---
EXAMINATION TYPE: FL UGI DATE OF EXAM: 04/08/2019 CLINICAL HISTORY: Status post gastric sleeve. Limited fluoroscopic esophageal evaluation. TECHNIQUE: Limited esophagram is performed utilizing oral Isovue 350. A total of 1 minute and 5 seco nds of fluoroscopic time was utilized during procedure. 26 fluoroscopic images were saved during the examination. COMPARISON: None. FINDINGS: The patient swallowed contrast without difficulty or delay. Esophageal peristalsis and mo tility are within normal limits. There is moderately delayed flow of contrast along the diaphragmati c hiatus into proximal stomach and subsequent flow into gastric sleeve. There is good flow from dista l sleeve into pylorus and duodenal sweep. Patient remains asymptomatic. There is no evidence of contr ast extravasation to suggest leak. IMPRESSION: No evidence of leak status post recent gastric sleeve surgery. Moderately delayed flow of contrast at the gastroesophageal junction, likely secondary to postoperative edema.
[2019-04-08 19:59] VITALS: RESP 16
[2019-04-09] MEDS: LACTATED RINGERS 1,000 ML IV SCH (01:33)
[2019-04-09] MEDS: ENOXAPARIN 60 MG/0.6 ML SYRINGE SQ SCH (01:37)
[2019-04-09] MEDS: HYDROmorphone 1 MG/ML 1 ML SYRINGE IVP PRN ×2 (01:42→06:17)
[2019-04-09] MEDS: ALBUTEROL NEBULIZED 2.5 MG/3 ML INHALATION SCH ×2 (07:21→11:20)
[2019-04-09 08:34] VITALS: BP 128/76; PULSE 60; TEMP 97.8
[2019-04-09 09:03] LABS: Basophils # (A) 0.1 k/uL (0-0.2); Basophils % (A) 1 %; Eosinophils % (A) 0 %; HGB 15.9 gm/dL (13.0-17.5); Lymphocytes # (A) 2.4 k/uL (1.0-4.8); Lymphocytes % (A) 20 %; MCH 28.8 pg (25.0-35.0); MCHC 31.7 g/dL (31.0-37.0); MCV 90.8 fL (80.0-100.0); Mean Platelet Volume 9.8; Monocytes # (A) 0.7 k/uL (0-1.0); Monocytes % (A) 6 %; Neutrophils # (A) 8.5 k/uL (1.3-7.7); Neutrophils % (A) 71 %; Platelet Count 181 k/uL (150-450); RBC 5.51 m/uL (4.30-5.90); RDW 13.6 % (11.5-15.5)
[2019-04-09] MEDS: LOSARTAN-HCTZ 50-12.5 MG 1 EACH TAB PO SCH (09:57)
[2019-04-09] MEDS: PANTOPRAZOLE 40 MG/10 ML VIAL IV SCH (09:57)
[2019-04-09] MEDS: 1: MVI, ADULT NO.4 WITH VIT K 10 ML, THIAMINE 100 MG, FOLIC ACID 1 MG, POTASSIUM CHLORID IV SCH ×6 (09:57)
--- NOTE | 2019-04-09 10:35 | P.DS ---
<Arabella Alberts - Last Filed: 04/09/19 10:32> Providers Expected date of discharge: 04/09/19 Hospital Course: 29-year-old male who underwent laparoscopic sleeve gastrectomy with Dr. Schofield. Patient is doing well postoperatively without any immediate complications. Esophagram negative for leak or obstruction. He is tolerating a liquid diet without difficulty. Vital signs are stable. Pain is controlled on oral medications. He is stable for discharge home today. Please see EMR for further hospital course details. Discharge Diagnosis: 1. Morbid obesity, status post laparoscopic sleeve gastrectomy Nurse practitioner note has been reviewed by physician. Signing provider agrees with the documented findings, assessment, and plan of care. Plan - Discharge Summary Discharge Rx Participant: Yes New Discharge Prescriptions: New Bisacodyl [Dulcolax] 5 mg PO DAILY PRN #10 tablet. PRN Reason: Constipation Simethicone 40 mg/0.6 ml Drops [Mylicon Drops] 40 mg PO PCHS PRN #30 ml PRN Reason: gas Hydrocodone/Acetaminophen [[place] 5-325] 1 tab PO Q6HR PRN #10 tab PRN Reason: Pain Omeprazole 40 mg PO DAILY #30 cap Ondansetron Odt [Zofran Odt] 4 mg PO Q8HR PRN #9 tab PRN Reason: Nausea No Action Losartan/Hydrochlorothiazide [Hyzaar 100-25 Tablet] 1 each PO DAILY Ergocalciferol [Vitamin D2] 50,000 unit PO WE Discharge Medication List Losartan/Hydrochlorothiazide [Hyzaar 100-25 Tablet] 1 each PO DAILY 11/28/18 [History] Ergocalciferol [Vitamin D2] 50,000 unit PO WE 12/26/18 [History] Bisacodyl [Dulcolax] 5 mg PO DAILY PRN #10 tablet. 04/09/19 [Rx] Hydrocodone/Acetaminophen [[place] 5-325] 1 tab PO Q6HR PRN #10 tab 04/09/19 [Rx] Omeprazole 40 mg PO DAILY #30 cap 04/09/19 [Rx] Ondansetron Odt [Zofran Odt] 4 mg PO Q8HR PRN #9 tab 04/09/19 [Rx] Simethicone 40 mg/0.6 ml Drops [Mylicon Drops] 40 mg PO PCHS PRN #30 ml 04/09/19 [Rx] Follow up [facility]ment(s[facility] [place] [facility] - 04/11/19 10:00 am Jose Palomino DO [Primary Care Provider] - 1 Week (Office will call you with appointment. Thank you.) Patient Instructions/Handouts: Laparoscopic Sleeve Gastrectomy (DC) Activity/Diet/Wound Care/Special Instructions: No driving while taking [place] No lifting over 10 pounds You may shower. No soaking or tub baths Very light activity until you are reevaluated at your follow up appointment with your surgeon Discharge Disposition: HOME SELF-CARE <Todd Schofield - Last Filed: 04/09/19 12:58> Providers Date of admission: 04/07/19 11:28 Attending physician: Todd Schofield Consults: 04/07/19 15:39 Consult Physician Routine Consulting Provider: Cristobal Mathew Consult Reason/Comments: Medical management Do you want consulting provider notified?: Yes Primary care physician: Jose Palomino - Discharge Diagnosis(es) (1) Morbid obesity with BMI of 70 and over, adult Status: Acute
--- NOTE | 2019-04-09 12:56 | P.PN ---
Subjective Progress Note Date: 04/09/19 29-year-old male with history of morbid obesity one of Dr. Palomino patient with history of hypertension chronic lower back pain who had the chronic anxiety and panic attack has been seen Dr. Mann for many years was referred to Dr. franco for gastric sleeve and was study for the last few month and clear for surgery by Dr. Mann patient ended up going for gastric sleeve today with Dr. shearer successfully with no major complication was admitted to the floor afterward he is doing well mildly drowsy pain is under control and hemodynamically stable continue to have slight abdominal pain around the incision site. 04/08: Patient is seen on postop day #1. He denies any nausea or vomiting. He is tolerating ice chips. He has not had a bowel movement. He is using incentive spirometry. He is scheduled for upper GI today. Patient has been afebrile, heart rate 96, blood pressure 132/65, pulse ox 90% on room air. WBC is 17.3, hemoglobin 17.3, platelet count 209. Electrolytes and renal function within normal limits. 04/09: Patient states abdominal pain is much improved today. The gasy sensation is resolved. He denies any nausea or vomiting. He has been afebrile, heart r ate 60, blood pressure 120/76, pulse ox 92-93% on room air. Repeat blood work reveals FVC 12.0, hemoglobin 15.9, platelet count 181. Patient is cleared from medicine for discharge home. Patient will follow-up with Dr. Mann. Review of Systems CONSTITUTIONAL: Well-developed no acute respiratory distress. Morbidly obese, denies fever, denies chills EYES: No icterus sclerae, no conjunctivitis. EARS, NOSE, MOUTH, THROAT, and FACE: No sore throat, lymphadenopathy, carotid bruits or deformity. RESPIRATORY: No SOB cough or wheezes. CARDIOVASCULAR: No CP, Palpitation, PND, Orthopnea, or angina. GASTROINTESTINAL: No Abd pain, no Nausea or vomiting, no Diarrhea or constipation, No GI Bleed, no distention or masses. GENITOURINARY: Negative for Hematuria or UTI, no kidney stones. INTEGUMENT/BREAST: Negative for any muscular injury with mild osteoarthritis.. HEMATOLOGIC/LYMPHATIC: Negative for bleed or purpura. MUSCULOSKELTAL: Generalized arthralgia and myalgia. NEURLOGICAL: No LOC, Sz or syncope, blurred vision dizziness or abnormality.. BEHAVIORAL/PSYCH: Negative. ENDOCRINE: Negative. Objective - Vital Signs Vital signs: Vital Signs Temp 97.8 F 04/09/19 07:00 Pulse 60 04/09/19 07:00 Resp 16 04/09/19 07:00 BP 128/76 04/09/19 07:00 Pulse Ox 92 L 04/09/19 07:00 Intake & Output 04/08/19 04/09/19 04/09/19 18:59 06:59 18:59 Intake Total 400 1200 Output Total 680 Balance -280 1200 Weight 214 kg Intake: Intake, IV Titration 400 1200 Amount 0.9% NaCl with KCl 20 Meq 400 1200 /l 1,000 ml @ 100 mls/hr IV .BY DURATION DARREN Rx#: [id number] Output: Urine 680 Other: Voiding Method Toilet Toilet # Voids 2 1 - Exam General Appearance: Alert, cooperative, no distress, appears stated age. Morbidly obese Neck HEENT: Supple, no lymphadenopathy, no thyroid enlargement, no carotid bruits. Lungs: Clear to auscultation without crackles or wheezes no rhonchi, no deformity. Chest Wall: Decrease expansion with deep inspiration no tenderness and no deformity was found on exam, no costochondral pain or discomfort. Heart: Regular rate and rhythm, S1, S2 normal, no murmur, rub or gallop. Back: Symmetric, no curvature, ROM normal, no CVA tenderness. Abdomen: Soft positive bowel sound no organomegaly. No significant drainage. Extremities: Trace edema and generalized arthralgia both knees and hips significantly with slight discoloration from the knee down Pulses: 2+ and symmetric. Skin: Skin color, texture, tugor normal, no rashes or lesions. Neurologic: Alert oriented x3 cranial nerves II through XII intact, no motor de ficit, no abnormal balance or gait. - Labs CBC & Chem 7: 04/09/19 08:09 04/08/19 07:32 Labs: Abnormal Lab Results - Last 24 Hours (Table) 04/09/19 Range/Units 08:09 WBC 12.0 H (3.8-10.6) k/uL Neutrophils # 8.5 H (1.3-7.7) k/uL Assessment and Plan Plan: 1. Postop day #1 gastric sleeve: Doing well after surgery resume home meds, incentive spirometry, continue to watch patient hemodynamic status continued to control his pain and increased mobility ESTIVEN. 2 hypertension: Continue medication with losartan hydrochlorothiazide 100/25 g a day. 3 severe arthritis both knees and hips has been on Tylenol and ibuprofen which should be held for now. 4 vitamin D deficiency: Has been on yobani-vitamin D on weekly basis. 5 DVT prophylaxis: Patient will be on Lovenox 60 mg every 12 hours. 6 GI prophylaxis: Patient will continue on pantoprazole IV. 7. Leukocytosis most likely secondary to Decadron given during surgery CODE STATUS: Full code. Discharge plan: Home Impression and plan of care have been directed as dictated by the signing physician. Akiko Cohen nurse practitioner acting as scribe for signing physician.
== END 2019-04-09 12:31 | disposition home or self-care (01) | DRG 621 ==
LOC: 2ORMAIN 11:28 → 4SSUR 16:49
PROVIDERS: ADMIT Surgery; ATTEND Surgery
PROC: 0DB64Z3 Excision of Stomach, Percutaneous Endoscopic Approach, Vertical (ICD-10-PCS; principal; 2019-04-07 12:45)
DX: E66.01 Morbid (severe) obesity due to excess calories (principal); F17.210 Nicotine dependence, cigarettes, uncomplicated; F41.0 Panic disorder [episodic paroxysmal anxiety]; I10 Essential (primary) hypertension; K29.70 Gastritis, unspecified, without bleeding; M19.90 Unspecified osteoarthritis, unspecified site; F41.9 Anxiety disorder, unspecified; E55.9 Vitamin D deficiency, unspecified; Z68.45 Body mass index [BMI] 70 or greater, adult; Z80.1 Family history of malignant neoplasm of trachea, bronchus and lung; Z80.8 Family history of malignant neoplasm of other organs or systems; Z82.49 Family history of ischemic heart disease and other diseases of the circulatory system; Z83.3 Family history of diabetes mellitus; Z90.89 Acquired absence of other organs; Z88.0 Allergy status to penicillin
CPT/HCPCS: 74240; 80051; 82310; 82565; 83735; 84100; 84520; 85025; 88307; 88342; 94640; 94760

== ENCOUNTER → 2019-04-15 | Outpatient (CLI) | payer BC ==
[2019-04-15 14:42] VITALS: BP 124/66; PULSE 80; RESP 16; TEMP 97.8; BMI 63.6
--- NOTE | 2019-04-15 16:02 | P.BASOAP ---
Subjective Progress Note Date: 04/15/19 Principal diagnosis: Morbid obesity Patient returns 1 week post sleeve gastrectomy. Doing well. Mild left upper quadrant pain at times. No nausea or vomiting. No GERD. No fevers. More energy than he has had in years. Good protein and liquid intake. He is afebrile. Objective - Vital Signs Vital signs: Vital Signs Temp 97.8 F 04/15/19 14:40 Pulse 80 04/15/19 14:40 Resp 16 04/15/19 14:40 BP 124/66 04/15/19 14:40 Pulse Ox Intake & Output 04/14/19 04/15/19 04/15/19 18:59 06:59 18:59 Weight 195.498 kg - Exam Abdomen: Soft, nondistended, incisions clean and dry Assessment/Plan (1) Morbid obesity with BMI of 70 and over, adult Narrative/Plan: Patient doing well at this time. Will be seen by dietitian today. Continue monitoring protein and liquid intake. Recheck 2 weeks. Plan: Date: 04/15/19 Initial Weight: 227.386 kg Initial BMI: 74.0 Current Weight: 195.498 kg Current BMI: 63.6 Type of Surgery: Total Volume in Band: Previous Volume: Volume Removed: Volume Added: Band Size:
== END | disposition home or self-care (01) ==
LOC: BARWHC3 14:26
PROVIDERS: ATTEND Surgery
DX: Z48.815 Encounter for surgical aftercare following surgery on the digestive system (principal); E66.01 Morbid (severe) obesity due to excess calories; Z68.44 Body mass index [BMI] 60.0-69.9, adult; R10.12 Left upper quadrant pain
CPT/HCPCS: 97802

== ENCOUNTER 2019-04-25 02:54 | Emergency (ER) | payer BC ==
[2019-04-25 03:03] VITALS: BP 121/78; PULSE 74; RESP 16; TEMP 98.3
[2019-04-25 03:55] LABS: Appearance,Urine Turbid (Clear); Bacteria,Urine Moderate /hpf; Bilirubin,Urine 1+ (Negative); Blood,Urine Large (Negative); Color,Urine Light Red; Glucose,Urine (UA) Negative (Negative); Ketones,Urine Trace (Negative); Leukocyte Esterase,Urine Negative (Negative); Mucus,Urine Occasional /hpf; Nitrite,Urine Negative (Negative); PH, Urine 5.5 (5.0-8.0); Protein,Urine 2+ (Negative); RBC,Urine >182 /hpf (0-5); Squamous Epithelial Cell,Urine 7 /hpf (0-4); WBC,Urine >182 /hpf (0-5)
[2019-04-25] MEDS ORDERED: SULFAMETH-TMP DS STARTER PACK 2 TAB BTL PO STA (04:33)
--- NOTE | 2019-04-25 04:40 | ED ---
General Adult HPI - General Chief complaint: Abdominal Pain Stated complaint: Urinary Retention Time Seen by Provider: 04/25/19 03:03 Source: patient Mode of arrival: ambulatory Limitations: no limitations - History of Present Illness Initial comments: Nestor is a 29-year-old male who presents to the ER today for evaluation of hematuria and dysuria. Patient reports that he had gastric bypass surgery on April 07, he states that he's been healing well with no comp occasions however he admits his oral intake has been minimal since surgery. Patient states he is supposed to drink 2 L of water per day and has been drinking as well as 500 mL. Patient reports that this evening he had an episode of dark urine that he believes had blood in it and some mild dysuria, he is concerned it was due to his decreased oral intake therefore he made the effort to drink a full liter of water. Patient reports he then had an episode of urine that was much clear and more comfortable however even after urinating he still felt the urge to urinate. Patient states around 2 AM he can urinate and noticed blood. At that time decided to come to the ER for further evaluation. - Related Data Previous Rx's Medication Instructions Recorded Omeprazole 40 mg PO DAILY #30 cap 04/09/19 Sulfamethox-Tmp 800-160Mg [Bactrim 1 tab PO Q12HR #14 tab 04/25/19 DS 800-160 mg] Allergies Allergy/AdvReac Type Severity Reaction Status Date / Time Penicillins Allergy Unknown Verified 04/25/19 03:03 Childhood Review of Systems ROS Statement: Those systems with pertinent positive or pertinent negative responses have been documented in the HPI. ROS Other: All systems not noted in ROS Statement are negative. Past Medical History Past Medical History: Hypertension, Osteoarthritis (OA) Additional Past Medical History / Comment(s): low back pain, bilateral hips (L>R), knees (R>L), and ankles (pt believes his issues are due to his weight) History of Any Multi-Drug Resistant Organisms: None Reported Past Surgical History: Adenoidectomy, Bariatric Surgery, Tonsillectomy Additional Past Surgical History / Comment(s): EGD sleeve gastrectomy 04-07-19 Past Anesthesia/Blood Transfusion Reactions: No Reported Reaction Additional Past Anesthesia/Blood Transfusion Reaction / Comment(s): No blood transfusion to date Past Psychological History: Anxiety Smoking Status: Current every day smoker Past Alcohol Use History: None Reported Past Drug Use History: None Reported - Past Family History Father Family Medical History: Cancer, Diabetes Mellitus, Hypertension Additional Family Medical History / Comment(s): Type 2 DM, throat cancer. Pts paternal grandfather had lung cancer, Type 2 DM, HTN. patients paternal uncle has CHF and Type 2 DM Mother Family Medical History: Cancer Additional Family Medical History / Comment(s): brain cancer. mat grandma brain cancer General Exam - General Exam Comments Initial Comments: Physical Exam GENERAL: Morbidly obese male in no acute distress HENT: Normocephalic, Atraumatic. EYES: PERRL, EOMI PULMONARY: Unlabored respirations. No audible rales rhonchi or wheezing was noted. CARDIOVASCULAR: There is a regular rate and rhythm without any murmurs gallops or rubs. ABDOMEN: Soft and nontender with normal bowel sounds. No tenderness to percussion of the bilateral flanks SKIN: Well-healing laparoscopic surgical incisions Patient has an open sore on the right flank within a skin fold, chronic, mild tenderness no obvious purulence or signs of infection. : Deferred NEUROLOGIC: Patient is alert and oriented x3. Moving all extremities spontaneously MUSCULOSKELETAL: Normal extremities with adequate strength and full range of motion. No lower extremity swelling or edema. No calf tenderness. PSYCHIATRIC: Normal psychiatric evaluation. Limitations: no limitations Course Vital Signs 04/25/19 02:56 Temperature 98.3 F Pulse Rate 74 Respiratory 16 Rate Blood Pressure 121/78 O2 Sat by Pulse 97 Oximetry Medical Decision Making - Medical Decision Making The patient was seen and evaluated, history is obtained from the patient 29-year-old male who had surgery 2 weeks ago complaining of dysuria and blood in the urine, patient did have catheterization for the surgery. Urinalysis was obtained and is consistent with urinary tract infection, patient will be treated with Bactrim. Patient was encouraged take this medication with food though he can eat only limited amount, patient states he is Swiss yogurt whole take the medication. All questions pertaining care were answered return parameters were discussed patient's discharge home in stable condition. - Lab Data Lab Results 04/25/19 Range/Units 03:40 Urine Color Light Red Urine Appearance Turbid (Clear) Urine pH 5.5 (5.0-8.0) Ur Specific [place] 1.020 (1.001-1.035) Urine Protein 2+ H (Negative) Urine Glucose (UA) Negative (Negative) Urine Ketones Trace H (Negative) Urine Blood Large H (Negative) Urine Nitrite Negative (Negative) Urine Bilirubin 1+ H (Negative) Urine Urobilinogen 4.0 (<2.0) mg/dL Ur Leukocyte Esterase Negative (Negative) Urine RBC >182 H (0-5) /hpf Urine WBC >182 H (0-5) /hpf Urine WBC Clumps Many H (None) /hpf Ur Squamous Epith Cells 7 H (0-4) /hpf Urine Bacteria Moderate H (None) /hpf Urine Mucus Occasional H (None) /hpf Disposition Clinical Impression: UTI (urinary tract infection) Disposition: HOME SELF-CARE Condition: Stable Instructions (If sedation given, give patient instructions): Urinary Tract Infection in Men (DC) Prescriptions: Sulfamethox-Tmp 800-160Mg [Bactrim DS 800-160 mg] 1 tab PO Q12HR #14 tab Is patient prescribed a controlled substance at d/c from ED?: No Referrals: Jose Palomino DO [Primary Care Provider] - 1-2 days
== END 2019-04-25 04:50 | disposition home or self-care (01) ==
LOC: EC 02:54
DX: N39.0 Urinary tract infection, site not specified (principal); I10 Essential (primary) hypertension; F17.200 Nicotine dependence, unspecified, uncomplicated; Z88.0 Allergy status to penicillin; Z98.84 Bariatric surgery status
CPT/HCPCS: 81001; 87077; 87086; 87186; 99284

== ENCOUNTER 2019-05-01 13:05 | Observation (INO) | payer BC ==
[2019-05-01] MEDS ORDERED: ONDANSETRON 4 MG/2 ML VIAL IVP PRN (17:13)
[2019-05-01] MEDS ORDERED: NALOXONE 0.4 MG/ML 1 ML VIAL IV PRN (17:13)
[2019-05-01] MEDS ORDERED: IOPAMIDOL CONTRAST (ORAL USE) VIAL PO PRN (17:18)
[2019-05-01] MEDS ORDERED: ACETAMINOPHEN TAB 325 MG TAB PO PRN (17:19)
--- NOTE | 2019-05-01 17:28 | P.GSHP ---
History of Present Illness H&P Date: 05/01/19 Chief Complaint: Nausea, dehydration, renal failure 29-year-old male known to our service. Patient underwent sleeve gastrectomy 3-4 weeks ago. Apparently he went to the ER last Sunday with complaints of hematuria and right flank discomfort. Patient's urinalysis suggested presence of urinary tract infection. Cultures later showed Klebsiella that was resistant to various antibiotics. He was initially given Bactrim but then switched to Macrobid. Patient began feeling better after discharge however 3-4 days later began experiencing nausea vomiting and generalized malaise. Some chills. No documented fevers. Urine still looks somewhat abnormal. He contacted our o ffice. Today he was brought in for fluid hydration. We had plans for CAT scan however once his creatinine was identified as being significantly elevated we decided to admit him to the hospital. Denies any left-sided pain. No upper abdominal pain. He was having intractable nausea with some dry heaves although denies dysphagia. Drinking did not make the pain any worse. Able to tolerate more liquids over the last 12-24 hours. - Review of Systems Comment: The patient denies any acute changes in vision or hearing, no dysphagia or odynophagia, no chest pain or shortness of breath, no headache, no runny nose, no rectal bleeding or melena, no unexplained weight loss Past Medical History Past Medical History: Hypertension, Osteoarthritis (OA) Additional Past Medical History / Comment(s): low back pain, bilateral hips (L>R), knees (R>L), and ankles (pt believes his issues are due to his weight) History of Any Multi-Drug Resistant Organisms: ESBL Date of last positivie culture/infection: 04/25/19 ESBL Klebsiella MDRO Source:: Urine Past Surgical History: Adenoidectomy, Bariatric Surgery, Tonsillectomy Additional Past Surgical History / Comment(s): EGD sleeve gastrectomy 04-07-19 Past Anesthesia/Blood Transfusion Reactions: No Reported Reaction Additional Past Anesthesia/Blood Transfusion Reaction / Comment(s): No blood transfusion to date Past Psychological History: Anxiety Additional Psychological History / Comment(s): anxiety when in hospital and waiting Smoking Status: Former smoker Past Alcohol Use History: None Reported Additional Past Alcohol Use History / Comment(s): started smoking at age 15, currently smokes 1/2 ppd. Quit one month ago Past Drug Use History: None Reported - Past Family History Father Family Medical History: Cancer, Diabetes Mellitus, Hypertension Additional Family Medical History / Comment(s): Type 2 DM, throat cancer. Pts paternal grandfather had lung cancer, Type 2 DM, HTN. patients paternal uncle has CHF and Type 2 DM Mother Family Medical History: Cancer Additional Family Medical History / Comment(s): brain cancer. mat grandma brain cancer Medications and Allergies Home Medications Medication Instructions Recorded Confirmed Type Losartan Potassium 100 mg PO DAILY 05/01/19 05/01/19 History Omeprazole Magnesium [PriLOSEC OTC] 20 mg PO DAILY 05/01/19 05/01/19 History Allergies Allergy/AdvReac Type Severity Reaction Status Date / Time Penicillins Allergy Family Verified 05/01/19 17:03 History Surgical - Exam Physical exam: General: Well-developed, well-nourished HEENT: Normocephalic, sclerae nonicteric Abdomen: Nontender, nondistended Extremities: No edema Neuro: Alert and oriented Assessment and Plan (1) Acute renal failure Narrative/Plan: 29-year-old male with acute renal failure. Possibility of obstructing ureteral stone with pyelonephritis also within the differential. Will obtain blood cultures and routine labs. Consult to internal medicine, infectious disease, and nephrology placed. Will obtain CT abdomen and pelvis with oral contrast only at this time. Antibiotics deferred to infectious disease given the sensitivities on recent culture. Continue GI and DVT prophylaxis. Aggressive fluid resuscitation. Current Visit: Yes Status: Acute Code(s): N17.9 - ACUTE KIDNEY FAILURE, UNSPECIFIED SNOMED Code(s): 86342992
[2019-05-01 18:10] LABS: Albumin 4.1 g/dL (3.5-5.0); Calcium 9.4 mg/dL (8.4-10.2); Magnesium 1.9 mg/dL (1.6-2.3); Phosphorus 3.5 mg/dL (2.5-4.5); Potassium 3.6 mmol/L (3.5-5.1); Total Bilirubin 1.6 mg/dL (0.2-1.3); Total Protein 7.7 g/dL (6.3-8.2)
[2019-05-01] MEDS ORDERED: SODIUM CHLORIDE 0.9% 1,000 ML IV ONE (18:18)
[2019-05-01 18:40] LABS: Basophils % (A) 0 %; Eosinophils % (A) 0 %; HCT 52.7 % (39.0-53.0); HGB 17.6 gm/dL (13.0-17.5); Lymphocytes # (A) 1.1 k/uL (1.0-4.8); Lymphocytes % (A) 13 %; MCH 29.2 pg (25.0-35.0); MCHC 33.5 g/dL (31.0-37.0); MCV 87.4 fL (80.0-100.0); Mean Platelet Volume 11.4; Monocytes # (A) 0.5 k/uL (0-1.0); Monocytes % (A) 6 %; Neutrophils # (A) 6.4 k/uL (1.3-7.7); Neutrophils % (A) 78 %; RBC 6.03 m/uL (4.30-5.90); WBC 8.1 k/uL (3.8-10.6)
--- NOTE | 2019-05-01 19:42 | CT ---
EXAMINATION TYPE: CT abdomen pelvis wo con DATE OF EXAM: 05/01/2019 COMPARISON: HISTORY: hematuria, gastric sleeve CT DLP: 2717 mGycm Automated exposure control for dose reduction was used. TECHNIQUE: Helical acquisition of images from the lung bases through the pelvis. FINDINGS: Lack of contrast could compromise sensitivity. Small foci of air density present adjacent to the gastroesophageal junction suture line, these may r epresent small foci of air within a small outpouching, difficult to exclude small punctate foci of ex traluminal air, local inflammatory changes likely related to prior surgery. LUNG BASES: No significant abnormality is appreciated. AORTA: No significant abnormality is appreciataed. LIVER/GB: High dense material within the gallbladder may be due to vicarious excretion of contrast or possibly tumefactive sludge. The spleen is enlarged. Liver shows low attenuation likely due to hepat ic steatosis. PANCREAS: No significant abnormality is seen. SPLEEN: No significant abnormality is seen. ADRENALS: No significant abnormality is seen. KIDNEYS: No significant abnormality is seen. Small umbilical hernia contains fat. REPRODUCTIVE ORGANS: No significant abnormality is seen. URINARY BLADDER: No significant abnormality is seen. BOWEL: No significant abnormality is seen. Patient is status post gastric sleeve. FREE AIR: No Free Air is visible. ASCITES: None visible. PELVIC ADENOPATHY: None visualized. RETROPERITONEAL ADENOPATHY: No Retroperitoneal Adenopathy visible. OSSEOUS STRUCTURES: Spondylosis noted in the visualized spine. IMPRESSION: PROBABLE POSTOP CHANGES DESCRIBED. HEPATIC STEATOSIS. FINDINGS IN THE GALLBLADDER DESCRIBED.
[2019-05-01 20:27] LABS: Large Platelets Present; Platelet Count 150 k/uL (150-450)
[2019-05-01] MEDS: D5-0.45% NACL WITH KCL 20MEQ/L 1,000 ML IV SCH (23:18)
--- NOTE | 2019-05-02 00:04 | P.CONS ---
History of Present Illness - Reason for Consult Consult date: 05/01/19 Urinary tract infection Requesting physician: Todd Schofield - Chief Complaint Urinary burning hematuria and right-sided flank pain x few days - History of Present Illness Patient is a 29-year-old male who is status post gastric sleeve surgery a few weeks ago the patient presented to the [facility] ER on April 25 predominantly with urinary symptoms of burning hematuria and right flank pain the patient was diagnosed with urinary tract infection has been treated with oral Bactrim DS few days later his antibiotic was switched over to Macrobid patient did have some improvement in his urinary symptoms however not completely resolved patient be complaining of feeling weak and tired decrease oral intake is still complaining of urine to be cloudy and concentrated but denies difficulty urination and no suprapubic or flank pain the right-sided pain seemed to have slightly decreased some nausea but no vomiting oral intakes remains too poor for chest pain shortness of breath or cough patient was evaluated the surgeon office and consideration for dehydration however he was noticed to have elevated creatinine subsequently the patient has been admitted to the hospital with recent urine culture positive for ESBL Klebsiella infection disease was consulted for further recommendation regarding antibiotic therapy Review of Systems Positive point has been mentioned in the HPI rest of the systems are negative Past Medical History Past Medical History: Hypertension, Osteoarthritis (OA) Additional Past Medical History / Comment(s): low back pain, bilateral hips (L>R), knees (R>L), and ankles (pt believes his issues are due to his weight) History of Any Multi-Drug Resistant Organisms: ESBL Year Discovered:: 04/25/19 ESBL Klebsiella MDRO Source:: Urine Past Surgical History: Adenoidectomy, Bariatric Surgery, Tonsillectomy Additional Past Surgical History / Comment(s): EGD sleeve gastrectomy 04-07-19 Past Anesthesia/Blood Transfusion Reactions: No Reported Reaction Additional Past Anesthesia/Blood Transfusion Reaction / Comm: No blood transfusion to date Past Psychological History: Anxiety Additional Psychological History / Comment(s): anxiety when in hospital and waiting Smoking Status: Former smoker Past Alcohol Use History: None Reported Additional Past Alcohol Use History / Comment(s): started smoking at age 15, currently smokes 1/2 ppd. Quit one month ago Past Drug Use History: None Reported - Past Family History Father Family Medical History: Cancer, Diabetes Mellitus, Hypertension Additional Family Medical History / Comment(s): Type 2 DM, throat cancer. Pts paternal grandfather had lung cancer, Type 2 DM, HTN. patients paternal uncle has CHF and Type 2 DM Mother Family Medical History: Cancer Additional Family Medical History / Comment(s): brain cancer. mat grandma brain cancer Medications and Allergies Home Medications Medication Instructions Recorded Confirmed Type Losartan Potassium 100 mg PO DAILY 05/01/19 05/01/19 History Omeprazole Magnesium [PriLOSEC OTC] 20 mg PO DAILY 05/01/19 05/01/19 History Allergies Allergy/AdvReac Type Severity Reaction Status Date / Time Penicillins Allergy Family Verified 05/01/19 17:03 History Physical Exam Vitals: Vital Signs Temp Pulse Resp BP Pulse Ox 05/01/19 15:00 98.2 F 83 17 103/69 96 Intake and Output 05/01/19 05/01/19 05/01/19 06:59 14:59 22:59 Other: Weight 196.5 kg GENERAL DESCRIPTION: Middle-aged male lying in bed, no distress. No tachypnea or accessory muscle of respiration use. HEENT: Shows Pallor , no scleral icterus. Oral mucous membrane is dry. No pharyngeal erythema or thrush NECK: Trachea central, no thyromegaly. LUNGS: Unlabored breathing. Clear to auscultation anteriorly. No wheeze or crackle. HEART: S1, S2, regular rate and rhythm. No loud murmur ABDOMEN: Soft, no tenderness , guarding or rigidity, no organomegaly EXTREMITIES: No edema of feet. SKIN: No rash, no masses palpable. NEUROLOGICAL: The patient is awake, alert, oriented x3, mood and affect normal. Results CBC & Chem 7: 05/01/19 17:30 05/01/19 17:30 Assessment and Plan Assessment: 1-patient with symptoms of weakness and decreased oral intake urinary burning concentrated urine and right flank pain in this patient was recently diagnosed with ESBL Klebsiella urinary tract infection this seemed to have failed oral Bactrim DS and Macrobid therapy 2-patient with renal insufficiency questionably related to Bactrim DS versus dehydration (1) UTI (urinary tract infection) Current Visit: No Status: Acute Code(s): N39.0 - URINARY TRACT INFECTION, S ITE NOT SPECIFIED SNOMED Code(s): 07021772 Plan: 1- we will check a UA and cultures 2-await CT of abdominal pelvis has been ordered for this evening 3-empirically add Invanz 500 milligrams a piggyback daily 4-IV fluids We will follow on clinical condition and cultures to further adjust medication if needed Thank you for this consultation will follow this patient with you Time with Patient: Greater than 30
[2019-05-02] MEDS: HEPARIN SODIUM,PORCINE 5,000 UNIT/ML 1 ML VIAL SQ SCH ×4 (01:14→22:34)
[2019-05-02 04:20] LABS: Appearance,Urine Turbid (Clear); Bacteria,Urine Many /hpf; Bilirubin,Urine Negative (Negative); Blood,Urine Moderate (Negative); Color,Urine Dark Brown; Glucose,Urine (UA) Negative (Negative); Hyaline Casts,Urine 152 /lpf (0-2); Ketones,Urine Negative (Negative); Leukocyte Esterase,Urine Large (Negative); Nitrite,Urine Negative (Negative); PH, Urine 5.5 (5.0-8.0); Protein,Urine 2+ (Negative); RBC,Urine >182 /hpf (0-5); Squamous Epithelial Cell,Urine 9 /hpf (0-4); WBC,Urine >182 /hpf (0-5)
[2019-05-02 04:25] LABS: Specific Gravity,Urine 1.021 (1.001-1.035)
[2019-05-02] MEDS: D5-0.45% NACL WITH KCL 20MEQ/L 1,000 ML IV SCH ×2 (06:28→10:20)
[2019-05-02] MEDS ORDERED: SODIUM CHLORIDE 0.9% 1,000 ML IV SCH (09:00)
--- NOTE | 2019-05-02 09:01 | P.CONS ---
History of Present Illness - Reason for Consult Consult date: 05/02/19 Medical management - History of Present Illness This is a 29-year-old male patient of Dr. Palomino with history of morbid obesity, hypertension, chronic lower back pain, chronic anxiety and panic attacks. On 04/07/2018, patient underwent gastric sleeve with Dr. Schofield. He did not have any postop complications and was discharged home on April 09. Patient one-week follow-up with Dr. Schofield in the bariatric center and was doing well at that time, eating and drinking, mild pain, no nausea or vomiting, no fe erin. On April 25, patient presented to [facility] emergency center due to hematuria and dysuria. Urinalysis was turbid and light bread, ketones trace, blood large, and nitrate negative, leukoesterase negative, RBCs greater than 182, wbc's greater than 182, diabetes comes many, squamous cells 7, bacteria moderate. Patient was placed on Bactrim for 7 day course and was discharged. He states that he had taken several days and then received a call from the ER and he was switched to Macrobid. After he started Macrobid he became nauseated with dry heaves and he was not eating or drinking and had significant lower oral intake. He then contacted Dr. Schofield due to nausea vomit ing generalized malaise, chills. Creatinine was found to be abnormal and patient was instructed to come into the hospital for a direct admission. Lab work revealed normal white count of 10, hemoglobin 18.4, platelet count 152. BUN 72 and creatinine 3.85 with repeat this morning of BUN 73 and creatinine 5.16. Total bilirubin 1.6, AST 62, ALT [address] phosphatase [address] of the abdomen and pelvis without contrast revealed no abnormality with the kidneys or bladder. Probable postop changes. Hepatic steatosis. Highly dense material in the gallbladder may be due to vicarious excretion of contrast or possibly tumefactive sludge. Spleen is enlarged. Patient states that the nausea and vomiting have resolved after his and off Macrobid. He states he has had a weight loss of 33 pounds since bariatric surgery. Renal ultrasound normal. Review of Systems Constitutional: Reports fatigue, Reports poor appetite, Reports weight loss, Denies chills, Denies fever Ears, nose, mouth and throat: Denies dysphagia, Denies headache, Denies nasal congestion, Denies nasal discharge, Denies sore throat Cardiovascular: Denies chest pain, Denies dyspnea on exertion, Denies lightheadedness, Denies orthopnea, Denies shortness of breath, Denies syncope Respiratory: Denies cough, Denies cough with sputum, Denies dyspnea, Denies excessive sputum, Denies hemoptysis, Denies home oxygen, Denies sleep apnea Gastrointestinal: Reports loss of appetite, Reports nausea, Reports vomiting, Denies abdominal pain, Denies diarrhea Genitourinary: Reports dysuria, Reports hematuria Musculoskeletal: Denies frequent falls, Denies gait dysfunction, Denies muscle weakness, Denies myalgias Integumentary: Denies pruritus, Denies rash, Denies wounds Neurological: Denies numbness, Denies syncope, Denies weakness Psychiatric: Denies anxiety, Denies depression Endocrine: Denies fatigue, Denies weight change Past Medical History Past Medical History: Hypertension, Osteoarthritis (OA) Additional Past Medical History / Comment(s): low back pain, bilateral hips (L>R), knees (R>L), and ankles (pt believes his issues are due to his weight) History of Any Multi-Drug Resistant Organisms: ESBL Year Discovered:: 04/25/19 ESBL Klebsiella MDRO Source:: Urine Past Surgical History: Adenoidectomy, Bariatric Surgery, Tonsillectomy Additional Past Surgical History / Comment(s): EGD sleeve gastrectomy 04-07-19 Past Anesthesia/Blood Transfusion Reactions: No Reported Reaction Additional Past Anesthesia/Blood Transfusion Reaction / Comm: No blood transfusion to date Past Psychological History: Anxiety Additional Psychological History / Comment(s): anxiety when in hospital and waiting Smoking Status: Former smoker Past Alcohol Use History: None Reported Additional Past Alcohol Use History / Comment(s): started smoking at age 15, currently smokes 1/2 ppd. Quit one month ago Past Drug Use History: None Reported - Past Family History Father Family Medical History: Cancer, Diabetes Mellitus, Hypertension Additional Family Medical History / Comment(s): Type 2 DM, throat cancer. Pts paternal grandfather had lung cancer, Type 2 DM, HTN. patients paternal uncle has CHF and Type 2 DM Mother Family Medical History: Cancer Additional Family Medical History / Comment(s): brain cancer. mat grandma brain cancer Medications and Allergies Home Medications Medication Instructions Recorded Confirmed Type Losartan Potassium 100 mg PO DAILY 05/01/19 05/01/19 History Omeprazole Magnesium [PriLOSEC OTC] 20 mg PO DAILY 05/01/19 05/01/19 History Allergies Allergy/AdvReac Type Severity Reaction Status Date / Time Penicillins Allergy Family Verified 05/01/19 17:03 History Physical Exam Vitals: Vital Signs Temp Pulse Resp BP BP Pulse Ox 05/02/19 07:28 98.8 F 78 102/61 93 L 05/02/19 04:20 99.3 F 77 103/58 92 L 05/02/19 04:00 83 17 05/02/19 03:40 99.8 F H 83 88/47 92 L 05/02/19 03:35 78 90/49 92 L 05/02/19 03:25 100.0 F H 78 77/42 92 L 05/02/19 03:15 93 64/32 92 L 05/02/19 03:00 100.3 F H 92 52/28 92 L 05/02/19 00:00 83 17 05/01/19 20:00 83 17 05/01/19 19:05 98.5 F 83 131/66 97 05/01/19 15:00 98.2 F 83 17 103/69 96 Intake and Output 05/01/19 05/02/19 05/02/19 22:59 06:59 14:59 Intake Total 150 1000 Output Total 30 Balance 150 970 Intake: Intake, IV Titration 150 1000 Amount D5-0.45% NaCl with KCl 150 20Meq/l 1,000 ml @ 150 mls/hr IV .Q6H40M [facility] Rx# :[id number] Sodium Chloride 0.9% 1, 1000 000 ml @ 999 mls/hr IV . Q1H1M [facility] Rx#:[id number] Output: Urine 30 Other: Voiding Method Toilet Toilet Weight 196.5 kg Gen: This is a morbidly obese 29-year-old male. Patient is resting in bed and appears to be comfortable and in no acute distress. HEENT: Head is atraumatic, normocephalic. Pupils equal, round. Sclerae is anicteric. NECK: Supple. No JVD. No lymphadenopathy. No thyromegaly. LUNGS: Clear to auscultation. No wheezes or rhonchi. No intercostal retractions. HEART: Regular rate and rhythm. No murmur. ABDOMEN: Soft. Bowel sounds are present. No masses. No tenderness. EXTREMITIES: No pedal edema. No calf tenderness. Dorsalis pedis +2 bilaterally. NEUROLOGICAL: Patient is awake, alert and oriented x3. Cranial nerves 2 through 12 are grossly intact. Results CBC & Chem 7: 05/01/19 17:30 05/02/19 09:00 Labs: Abnormal Lab Results - Last 24 Hours (Table) 05/01/19 05/01/19 05/02/19 Range/Units 17:30 17:30 03:54 RBC 6.03 H (4.30-5.90) m/uL Hgb 17.6 H (13.0-17.5) gm/dL BUN 73 H (9-20) mg/dL Creatinine 5.16 H (0.66-1.25) mg/dL Total Bilirubin 1.6 H (0.2-1.3) mg/dL AST 62 H (17-59) U/L ALT 94 H (4-49) U/L Urine Protein 2+ H (Negative) Urine Blood Moderate H (Negative) Ur Leukocyte Esterase Large H (Negative) Urine RBC >182 H (0-5) /hpf Urine WBC >182 H (0-5) /hpf Urine WBC Clumps Many H (None) /hpf Ur Squamous Epith Cells 9 H (0-4) /hpf Urine Bacteria Many H (None) /hpf Hyaline Casts 152 H (0-2) /lpf Assessment and Plan Plan: 1. Acute kidney injury with ATN possibly related to combination of bactrim, ARB, nausea and vomiting due to macrobid and hypotension. Losartan on hold. IV fluids per nephrology. Consult with nephrology appreciated. CRISTO, anti-DNA DS antibody, C ANCA, complement C3, complement C4, urine eosinophil level, hepatitis panel ordered. 2. Acute ESBL Klebsiella pneumoniae urinary tract infection. Patient has been seen by Dr. Jimenze and started on Invanz. 3. Hypertension, patient is currently hypo-tensive side. Hold losartan. Patient may not require antihypertensive medications secondary to weight loss. 4. Morbid obesity status post gastric sleeve on April 07. Patient has lost 33 pounds. 5. GI prophylaxis. Protonix. 6. DVT prophylaxis. Heparin. 7. Mild elevation in liver function tests. Continue to monitor. 8. Nausea and vomiting secondary to Macrobid, resolved. Discharge plan: Home Impression and plan of care have been directed as dictated by the signing physi cian. Akiko Cohen nurse practitioner acting as scribe for signing physician.
--- NOTE | 2019-05-02 09:33 | US ---
EXAMINATION TYPE: US kidneys/renal and bladder DATE OF EXAM: 05/02/2019 COMPARISON: ct 05/01/2019 CLINICAL HISTORY: acute renal failure/uti. Difficult exam due to patient body habitus EXAM MEASUREMENTS: Right Kidney: 12.7 x 6.2 x 5.5 cm Left Kidney: 10.9 x 5.8 x 5.5 cm Right Kidney: No hydronephrosis or masses seen Left Kidney: No hydronephrosis or masses seen Bladder: wnl as visualized, not fully distended Bilateral Jets seen: Yes There is no evidence for hydronephrosis at this point in time. No nephrolithiasis is seen. No arslan s are identified. The urinary bladder is anechoic. Bilateral ureteral jets are seen. IMPRESSION: Normal renal ultrasound as visualized
[2019-05-02 09:42] LABS: Calcium 8.5 mg/dL (8.4-10.2)
[2019-05-02 09:50] LABS: Potassium 3.8 mmol/L (3.5-5.1)
[2019-05-02] MEDS: ERTAPENEM 0.5 GM in SODIUM CHLORIDE 0.9% 50 ML IVPB SCH (10:04)
[2019-05-02] MEDS: PANTOPRAZOLE 40 MG/10 ML VIAL IV SCH (10:04)
[2019-05-02] MEDS: DEXTROSE 5%-0.9% NACL 1,000 ML IV SCH ×2 (10:31→17:27)
--- NOTE | 2019-05-02 11:28 | CONS ---
CONSULTATION REASON FOR CONSULT: Renal failure. HISTORY OF PRESENT ILLNESS: Patient is a 29-year-old male with past history of hypertension, obesity, status post gastric sleeve procedure on 04/07/[address] Schofield. The patient had been feeling okay, post discharge after the procedure, but noted blood in his urine about a week ago. He was prescribed Bactrim as outpatient and he stated that his symptoms seem to have improved, but it was switched over to Macrobid. Patient complained of increased weakness, not feeling well. He also had nausea, generalized malaise and chills and vomiting and therefore he was admitted to the hospital. Labs done that showed a serum creatinine of 5.1 on 05/01 and 05/02/2019. Previous creatinine was 0.74 on 04/08/2019. The patient has not had any significant urine output since admission to the hospital. A postvoid scan was checked and he had only 20 mL in the bladder. UA shows significant WBCs, more than 182 with 2+ protein and moderate blood. The patient denies use of nonsteroidal anti-inflammatory agents prior to admission. He is currently not on the Bactrim. Blood pressure has been low with systolic in the 80s. Patient was maintained on losartan for hypertension, which she continues to take as outpatient. Currently, patient is maintained on IV fluids. He states he is feeling slightly better. Serum creatinine, however, has not decreased, it is still elevated at 5.7 this morning. PAST MEDICAL HISTORY: Hypertension, obesity, status post recent gastric sleeve procedure on 04/07/2018, history of osteoarthritis, lower back pain. PAST SURGICAL HISTORY: Adenoidectomy, bariatric surgery, tonsillectomy. MEDICATIONS: Prior to admission, Prilosec, losartan. ALLERGIES: PENICILLIN. REVIEW OF SYSTEMS: As per HPI. Other systems negative. PHYSICAL EXAMINATION: On examination, patient is comfortable, awake, he is not in any acute distress. Blood pressure is 102/61, heart rate 78 per minute, he is afebrile. Examination of the heart S1, S2. Examination of the lungs, bilateral breath sounds are heard. Abdomen is soft. Morbidly obese. Examination of the lower extremities shows no significant edema. CLINICAL SCIENTIST exam grossly intact. LABS: Show sodium 137, potassium 3.8, chloride 101. CO2 is 21, BUN 80, creatinine 5.76, phosphorus 3.5, albumin 4.1. UA shows 2+ protein, moderate blood, WBC is more than 182, hyaline casts 152. ASSESSMENT: 1. Acute kidney injury. Severe ATN versus acute GN. Patient's creatinine was 0.7 mg/dL on 04/08/2019, which was just after the procedure. Will recheck an ultrasound of the kidneys as well to rule out any obstructive uropathy, which I doubt. Acute interstitial nephritis is a possibility as well as the patient was recently treated with Bactrim. The urine culture on 04/25/2019 had grown Klebsiella pneumonia. If the renal function does not improve, we will proceed with serologies for workup to rule out underlying acute GN. 2. Hypotension. Hold off on all antihypertensive medications. 3. Volume depletion. 4. Urinary tract infection. Urine culture on 04/25/2019 grew Klebsiella, status post antibiotics as outpatient. ID is on consult. Patient is maintained on IV antibiotics and follow up on the urine culture again. 5. Status post gastric sleeve procedure on 04/07/2019. PLAN: Change IV fluids to normal saline. Check ultrasound of the kidneys, repeat labs in a.m. Hold off on AGUEDA inhibitors, check serologies for workup. The patient is advised that if his renal function continues to deteriorate, he may need renal replacement therapy; however, at least this is going to be temporary. If he needs this at all, he needs it during this hospitalization, given the rather acute development of severe acute renal failure. I will proceed with serology full workup as well. Add empiric prednisone tomorrow if there is no further improvement. The patient will also likely need a kidney biopsy this admission if renal function does not improve. Thank you for this consultation. Will continue to follow the patient with you during his hospitalization. MMODL / IJN: [id number] /
[2019-05-02 12:06] VITALS: BMI 62.1
--- NOTE | 2019-05-02 12:28 | P.PN ---
<Arabella Alberts - Last Filed: 05/02/19 12:25> Subjective Progress Note Date: 05/02/19 CHIEF COMPLAINT: Nausea, dehydration, renal failure HISTORY OF PRESENT ILLNESS: Patient seen and examined this morning at the bedside. Computed tomography scan completed revealed small foci of air density present adjacent to the gastroesophageal junction suture line. This may represent small foci of air within a small outpouching, difficult to exclude small punctuate foci of extraluminal air. Ultrasound kidneys was completed without evidence for hydronephrosis. No nephrolithiasis visualized. No mass identified. Patient denies abdominal pain. Denies nausea or vomiting. Tolerating clear liquid diet. He reports voiding a small amount of dark colored urine. Creatinine 5.76. PHYSICAL EXAM: VITAL SIGNS: Reviewed. GENERAL: Well-developed in no acute distress. HEENT: No sclera icterus. Extraocular movements grossly intact. Moist buccal mucosa. Head is atraumatic, normocephalic. ABDOMEN: Soft. Nondistended. Nontender. NEUROLOGIC: Alert and oriented. Cranial nerves II through XII grossly intact. ASSESSMENT: 1. Acute renal failure 2. Urinary tract infection PLAN: -Continue IV antibiotics per Dr. Jimenez -Continue IV fluids -Continue diet as tolerated -Monitor kidney function. Nephrology on consult. Await recommendations Nurse practitioner note has been reviewed by physician. Signing provider agrees with the documented findings, assessment, and plan of care. Objective - Vital Signs Vital signs: Vital Signs Temp 98.8 F 05/02/19 07:28 Pulse 78 05/02/19 07:28 Resp 17 05/02/19 04:00 BP 102/61 05/02/19 07:28 Pulse Ox 93 L 05/02/19 07:28 Intake & Output 05/01/19 05/02/19 05/02/19 18:59 06:59 18:59 Intake Total 1150 Output Total 30 Balance 1120 Weight 196.5 kg Intake: Intake, IV Titration 1150 Amount D5-0.45% NaCl with KCl 150 20Meq/l 1,000 ml @ 150 mls/hr IV .Q6H40M [facility] Rx# :[id number] Sodium Chloride 0.9% 1, 1000 000 ml @ 999 mls/hr IV . Q1H1M [facility] Rx#:[id number] Output: Urine 30 Other: Voiding Method Toilet - Labs CBC & Chem 7: 05/01/19 17:30 05/02/19 09:00 Labs: Abnormal Lab Results - Last 24 Hours (Table) 05/01/19 05/01/19 05/02/19 Range/Units 17:30 17:30 03:54 RBC 6.03 H (4.30-5.90) m/uL Hgb 17.6 H (13.0-17.5) gm/dL Carbon Dioxide (22-30) mmol/L BUN 73 H (9-20) mg/dL Creatinine 5.16 H (0.66-1.25) mg/dL Glucose (74-99) mg/dL Total Bilirubin 1.6 H (0.2-1.3) mg/dL AST 62 H (17-59) U/L ALT 94 H (4-49) U/L Urine Protein 2+ H (Negative) Urine Blood Moderate H (Negative) Ur Leukocyte Esterase Large H (Negative) Urine RBC >182 H (0-5) /hpf Urine WBC >182 H (0-5) /hpf Urine WBC Clumps Many H (None) /hpf Ur Squamous Epith Cells 9 H (0-4) /hpf Urine Bacteria Many H (None) /hpf Hyaline Casts 152 H (0-2) /lpf 05/02/19 Range/Units 09:00 RBC (4.30-5.90) m/uL Hgb (13.0-17.5) gm/dL Carbon Dioxide 21 L (22-30) mmol/L BUN 80 H (9-20) mg/dL Creatinine 5.76 H (0.66-1.25) mg/dL Glucose 104 H (74-99) mg/dL Total Bilirubin (0.2-1.3) mg/dL AST (17-59) U/L ALT (4-49) U/L Urine Protein (Negative) Urine Blood (Negative) Ur Leukocyte Esterase (Negative) Urine RBC (0-5) /hpf Urine WBC (0-5) /hpf Urine WBC Clumps (None) /hpf Ur Squamous Epith Cells (0-4) /hpf Urine Bacteria (None) /hpf Hyaline Casts (0-2) /lpf <Todd Schofield - Last Filed: 05/02/19 12:38> Subjective As above. Patient says he feels much better today. Denies pain. Tolerating liquids. Creatinine is similar to yesterday despite hydration. Continue IV antibiotics per infectious disease. Continue to monitor urine output and kidney function closely. Discussed case with nephrology. Patient may require dialysis if no improvement. Objective - Vital Signs Vital signs: Vital Signs Temp 98.8 F 05/02/19 07:28 Pulse 78 05/02/19 07:28 Resp 17 05/02/19 04:00 BP 102/61 05/02/19 07:28 Pulse Ox 93 L 05/02/19 07:28 Intake & Output 05/01/19 05/02/19 05/02/19 18:59 06:59 18:59 Intake Total 1150 Output Total 30 Balance 1120 Weight 196.5 kg 196.5 kg Intake: Intake, IV Titration 1150 Amount D5-0.45% NaCl with KCl 150 20Meq/l 1,000 ml @ 150 mls/hr IV .Q6H40M [facility] Rx# :[id number] Sodium Chloride 0.9% 1, 1000 000 ml @ 999 mls/hr IV . Q1H1M [facility] Rx#:[id number] Output: Urine 30 Other: Voiding Method Toilet - Labs CBC & Chem 7: 05/01/19 17:30 05/02/19 09:00 Labs: Abnormal Lab Results - Last 24 Hours (Table) 05/01/19 05/01/19 05/02/19 Range/Units 17:30 17:30 03:54 RBC 6.03 H (4.30-5.90) m/uL Hgb 17.6 H (13.0-17.5) gm/dL Carbon Dioxide (22-30) mmol/L BUN 73 H (9-20) mg/dL Creatinine 5.16 H (0.66-1.25) mg/dL Glucose (74-99) mg/dL Total Bilirubin 1.6 H (0.2-1.3) mg/dL AST 62 H (17-59) U/L ALT 94 H (4-49) U/L Urine Protein 2+ H (Negative) Urine Blood Moderate H (Negative) Ur Leukocyte Esterase Large H (Negative) Urine RBC >182 H (0-5) /hpf Urine WBC >182 H (0-5) /hpf Urine WBC Clumps Many H (None) /hpf Ur Squamous Epith Cells 9 H (0-4) /hpf Urine Bacteria Many H (None) /hpf Hyaline Casts 152 H (0-2) /lpf 05/02/19 Range/Units 09:00 RBC (4.30-5.90) m/uL Hgb (13.0-17.5) gm/dL Carbon Dioxide 21 L (22-30) mmol/L BUN 80 H (9-20) mg/dL Creatinine 5.76 H (0.66-1.25) mg/dL Glucose 104 H (74-99) mg/dL Total Bilirubin (0.2-1.3) mg/dL AST (17-59) U/L ALT (4-49) U/L Urine Protein (Negative) Urine Blood (Negative) Ur Leukocyte Esterase (Negative) Urine RBC (0-5) /hpf Urine WBC (0-5) /hpf Urine WBC Clumps (None) /hpf Ur Squamous Epith Cells (0-4) /hpf Urine Bacteria (None) /hpf Hyaline Casts (0-2) /lpf Assessment and Plan (1) Acute renal failure Current Visit: Yes Status: Acute Code(s): N17.9 - ACUTE KIDNEY FAILURE, UNSPECIFIED SNOMED Code(s): 57986033
--- NOTE | 2019-05-02 18:28 | PN ---
PROGRESS NOTE DATE OF SERVICE: 05/02/2019. REASON FOR FOLLOWUP: Urinary tract infection. INTERVAL HISTORY: The patient did have a low-grade fever last night of 100.3. Today she is 99.8. The patient is afebrile this morning. Has been breathing comfortably. Denies having any chest pain, shortness of breath or cough. No abdominal pain. No diarrhea. On examination, blood pressure 121/51 with a pulse of 78, temperature 98.3. He is 93% on room air. General description is a middle aged male lying in bed in no distress. Respiratory system: Unlabored breathing. Clear to auscultation anteriorly. Heart S1, S2. Regular rate and rhythm. Abdomen soft, no tenderness. LABORATORY DATA: BUN 8, creatinine 5.7. Repeat has positive cultures, currently pending. DIAGNOSTIC IMPRESSION AND PLAN: The patient admitted to the hospital with hematuria in this patient who recently had urine culture positive for ESBL Klebsiella. Patient is covered with Invanz. We will wait for the repeat cultures to finalize and monitor clinical course closely. Continue supportive care. MMODL / IJN: [id number] /
[2019-05-03 00:24] LABS: Anti-DNA, DS unit <1.0 IU/mL; DNA Double-Stranded NEGATIVE (NEGATIVE)
[2019-05-03 00:26] LABS: Hepatitis A Antibody IgM Non-Reactive (Non-Reactive); Hepatitis B Core IgM Non-Reactive (Non-Reactive); Hepatitis B Surface Antigen Non-Reactive (Non-Reactive); Hepatitis C IgG Antibody Non-Reactive (Non-Reactive)
[2019-05-03] MEDS: DEXTROSE 5%-0.9% NACL 1,000 ML IV SCH ×2 (01:23→05:18)
[2019-05-03 08:03] LABS: Calcium 8.2 mg/dL (8.4-10.2)
[2019-05-03] MEDS: HEPARIN SODIUM,PORCINE 5,000 UNIT/ML 1 ML VIAL SQ SCH ×2 (08:47→16:24)
--- NOTE | 2019-05-03 09:16 | P.PN ---
Subjective Progress Note Date: 05/03/19 Principal diagnosis: This is a 29-year-old male seen because of acute kidney injury from Bactrim and volume depletion because of nausea vomiting. Also had a urinary tract infection with Klebsiella. He was hydrated with IV fluids and his improved. He recently had EGD sleeve gastrectomy 04-07-19 His creatinine is comedown from 5.76 yesterday to 1.99 this morning and a urine output of 1750 mL. His baseline creatinine is 0.74 on 04/08/2019 a day after his gastric sleeve surgery. Objective - Vital Signs Vital signs: Vital Signs Temp 98.1 F 05/03/19 08:44 Pulse 66 05/03/19 08:44 Resp 16 05/03/19 08:44 BP 109/51 05/03/19 08:44 Pulse Ox 95 05/03/19 08:44 Intake & Output 05/02/19 05/03/19 05/03/19 18:59 06:59 18:59 Output Total 400 1350 600 Balance -400 -1350 -600 Weight 196.5 kg Output: Urine 400 1350 600 Other: Voiding Method Toilet Toilet # Voids 4 On exertion is awake alert oriented comfortable is able to walk HEENT exam no JVP neck is supple no facial asymmetry Lungs are clear to auscultation percussion good air entry bilaterally Heart sounds are unremarkable for any murmur rub gallop Abdomen soft nontender Extremity exam was no edema Neurologically awake alert oriented - Labs CBC & Chem 7: 05/01/19 17:30 05/03/19 06:56 Labs: Abnormal Lab Results - Last 24 Hours (Table) 05/02/19 05/03/19 Range/Units 09:00 06:56 Carbon Dioxide 21 L (22-30) mmol/L BUN 80 H 62 H (9-20) mg/dL Creatinine 5.76 H 1.99 H (0.66-1.25) mg/dL Glucose 104 H 111 H (74-99) mg/dL Calcium 8.2 L (8.4-10.2) mg/dL Microbiology - Last 24 Hours (Table) 05/01/19 17:30 Blood Culture - Preliminary Blood No Growth after 24 hours 05/02/19 03:54 Urine Culture - Preliminary Urine,Voided Assessment and Plan Assessment: Impression 1. Acute kidney injury secondary to volume depletion, possibly from Bactrim induced crystal deposition but thought to be unlikely as his creatinine has immediately improved with hydration 2. Mild acidosis resolved etiology is acute kidney injury. Perhaps an element of GI loss from diarrhea. 3. Morbid obesity status post gastric sleeve surgery 04/07/2019. 4. Urinary tract infection with Klebsiella possibly postop complication might have had urinary bladder catheter inserted during surgery. Recommendation Patient can be discharged. Follow-up in the office in 2-3 days' time with repeat labs. Continue oral hydration Avoid any nephrotoxic medications, nonsteroidals specially
[2019-05-03] MEDS: PANTOPRAZOLE 40 MG/10 ML VIAL IV SCH (09:18)
[2019-05-03] MEDS: ERTAPENEM 0.5 GM in SODIUM CHLORIDE 0.9% 50 ML IVPB SCH (09:18)
--- NOTE | 2019-05-03 11:52 | P.PN ---
Subjective Progress Note Date: 05/03/19 Principal diagnosis: Acute renal failure Patient feels much better today. BUN 62 creatinine 1.99. Has been seen by nephrology and cleared for discharge from their point of view. He is afebrile. Tolerating liquids. Objective - Vital Signs Vital signs: Vital Signs Temp 98.1 F 05/03/19 08:44 Pulse 66 05/03/19 08:44 Resp 16 05/03/19 08:44 BP 109/51 05/03/19 08:44 Pulse Ox 95 05/03/19 08:44 Intake & Output 05/02/19 05/03/19 05/03/19 18:59 06:59 18:59 Output Total 400 1350 600 Balance -400 -1350 -600 Weight 196.5 kg Output: Urine 400 1350 600 Other: Voiding Method Toilet Toilet # Voids 4 - Exam Abdomen: Soft, nontender, nondistended - Labs CBC & Chem 7: 05/01/19 17:30 05/03/19 06:56 Labs: Abnormal Lab Results - Last 24 Hours (Table) 05/03/19 Range/Units 06:56 BUN 62 H (9-20) mg/dL Creatinine 1.99 H (0.66-1.25) mg/dL Glucose 111 H (74-99) mg/dL Calcium 8.2 L (8.4-10.2) mg/dL Microbiology - Last 24 Hours (Table) 05/01/19 17:30 Blood Culture - Preliminary Blood No Growth after 24 hours 05/02/19 03:54 Urine Culture - Preliminary Urine,Voided Assessment and Plan (1) Acute renal failure Narrative/Plan: Patient certainly doing better. Labs are improved. Tolerated already 40 ounces of liquids this morning. Patient is quite anxious for discharge. I did tell him however that his urinary tract infection antibiotic regimen needs to be determined first. Await ID reevaluation. Patient may require home with IV antibiotics given his ALLERGIES and sensitivities on recent culture. Current Visit: Yes Status: Acute Code(s): N17.9 - ACUTE KIDNEY FAILURE, UNSPECIFIED SNOMED Code(s): 12839865
--- NOTE | 2019-05-03 13:11 | P.PN ---
Subjective Progress Note Date: 05/03/19 This is a 29-year-old male patient of Dr. Palomino with history of morbid obesity, hypertension, chronic lower back pain, chronic anxiety and panic attacks. On 04/07/2018, patient underwent gastric sleeve with Dr. Schofield. He did not have any postop complications and was discharged home on April 09. Patient one-week follow-up with Dr. Schofield in the bariatric center and was doing well at that time, eating and drinking, mild pain, no nausea or vomiting, no fever. On April 25, patient presented to [facility] emergency center due to hematuria and dysuria. Urinalysis was turbid and light bread, ketones trace, blood large, and nitrate negative, leukoesterase negative, RBCs greater than 182, wbc's greater than 182, diabetes comes many, squamous cells 7, bacteria moderate. Patient was placed on Bactrim for 7 day course and was discharged. He states that he had taken several days and then received a call from the ER and he was switched to Macrobid. After he started Macrobid he became nauseated with dry heaves and he was not eating or drinking and had significant lower oral intake. He then contacted Dr. Schofield due to nausea vomiting generalized malaise, chills. Creatinine was found to be abnormal and patient was instructed to come into the hospital for a direct admission. Lab work revealed normal white count of 10, hemoglobin 18.4, platelet count 152. B UN 72 and creatinine 3.85 with repeat this morning of BUN 73 and creatinine 5.16. Total bilirubin 1.6, AST 62, ALT [address] and alkaline phosphatase 122[address] CT of the abdomen and pelvis without contrast revealed no abnormality with the kidneys or bladder. Probable postop changes. Hepatic steatosis. Highly dense material in the gallbladder may be due to vicarious excretion of contrast or possibly tumefactive sludge. Spleen is enlarged. Patient states that the nausea and vomiting have resolved after his and off Macrobid. He states he has had a weight loss of 33 pounds since bariatric surgery. Renal ultrasound normal. 05/03: Patient has been afebrile, heart rate 66, blood pressure 109/51, pulse ox 95% on room air. Repeat BUN 62, creatinine 1.99, potassium 4.0. CRISTO screen negative, double-stranded DNA antibody negative, complement C3 140, couple and C4 46.7 both are normal. Hepatitis panel negative. Patient has been cleared for discharge by nephrology. Patient will no longer require losartan at home as his blood pressure is on the lower side and improved secondary to weight loss. Dr. Denised to advise on antibiotics. Objective - Vital Signs Vital signs: Vital Signs Temp 98.1 F 05/03/19 08:44 Pulse 66 05/03/19 08:44 Resp 16 05/03/19 08:44 BP 109/51 05/03/19 08:44 Pulse Ox 95 05/03/19 08:44 Intake & Output 05/02/19 05/03/19 05/03/19 18:59 06:59 18:59 Output Total 400 1350 600 Balance -400 -1350 -600 Weight 196.5 kg Output: Urine 400 1350 600 Other: Voiding Method Toilet Toilet # Voids 4 - Exam Review of Systems Constitutional: Reports fatigue, denies poor appetite, Reports weight loss, Denies chills, Denies fever Ears, nose, mouth and throat: Denies dysphagia, Denies headache, Denies nasal congestion, Denies nasal discharge, Denies sore throat Cardiovascular: Denies chest pain, Denies dyspnea on exertion, Denies lightheadedness, Denies orthopnea, Denies shortness of breath, Denies syncope Respiratory: Denies cough, Denies cough with sputum, Denies dyspnea, Denies excessive sputum, Denies hemoptysis, Denies home oxygen, Denies sleep apnea Gastrointestinal: Denies loss of appetite, denies nausea, denies vomiting, Denies abdominal pain, Denies diarrhea Genitourinary: Denies dysuria, denies hematuria Musculoskeletal: Denies frequent falls, Denies gait dysfunction, Denies muscle weakness, Denies myalgias Integumentary: Denies pruritus, Denies rash, Denies wounds Neurological: Denies numbness, Denies syncope, Denies weakness Psychiatric: Denies anxiety, Denies depression Endocrine: Denies fatigue, Denies weight change Physical exam: Gen: This is a morbidly obese 29-year-old male. Patient is resting chair and appears to be comfortable and in no acute distress. HEENT: Head is atraumatic, normocephalic. Pupils equal, round. Sclerae is anicteric. NECK: Supple. No JVD. No lymphadenopathy. No thyromegaly. LUNGS: Clear to auscultation. No wheezes or rhonchi. No intercostal retractions. HEART: Regular rate and rhythm. No murmur. ABDOMEN: Soft. Bowel sounds are present. No masses. No tenderness. EXTREMITIES: No pedal edema. No calf tenderness. Dorsalis pedis +2 bilaterally. NEUROLOGICAL: Patient is awake, alert and oriented x3. Cranial nerves 2 through 12 are grossly intact. - Labs CBC & Chem 7: 05/01/19 17:30 05/03/19 06:56 Labs: Abnormal Lab Results - Last 24 Hours (Table) 05/02/19 05/03/19 Range/Units 09:00 06:56 Carbon Dioxide 21 L (22-30) mmol/L BUN 80 H 62 H (9-20) mg/dL Creatinine 5.76 H 1.99 H (0.66-1.25) mg/dL Glucose 104 H 111 H (74-99) mg/dL Calcium 8.2 L (8.4-10.2) mg/dL Microbiology - Last 24 Hours (Table) 05/01/19 17:30 Blood Culture - Preliminary Blood No Growth after 24 hours 05/02/19 03:54 Urine Culture - Preliminary Urine,Voided Assessment and Plan Plan: 1. Acute kidney injury with ATN possibly related to combination of bactrim, ARB, nausea and vomiting due to macrobid and hypotension. Losartan on hold. IV fluids per nephrology. Consult with nephrology appreciated. Patient will not be discharged home on losartan. 2. Acute ESBL Klebsiella pneumoniae urinary tract infection. Patient has been seen by Dr. Jimenez and started on Invanz. 3. Hypertension, patient is currently hypo-tensive side. Hold losartan. Isaias gupta may not require antihypertensive medications secondary to weight loss. 4. Morbid obesity status post gastric sleeve on April 07. Patient has lost 33 pounds. 5. GI prophylaxis. Protonix. 6. DVT prophylaxis. Heparin. 7. Mild elevation in liver function tests. Continue to monitor. 8. Nausea and vomiting secondary to Macrobid, resolved. Discharge plan: Home Impression and plan of care have been directed as dictated by the signing physician. Akiko Cohen nurse practitioner acting as scribe for signing physician.
--- NOTE | 2019-05-03 13:31 | PN ---
PROGRESS NOTE DATE OF SERVICE: 05/03/2019 REASON FOR FOLLOWUP: UTI, possible ESBL Klebsiella. INTERVAL HISTORY: The patient is currently afebrile, has been breathing comfortably. Overall feeling better. The patient denies having any chest pain or shortness of breath or cough. No nausea, no vomiting, no abdominal pain or diarrhea. The patient has been anxious to go home. PHYSICAL EXAMINATION: Blood pressure 109/51 with a pulse of 66, temperature 98.1. He is 95% on room air. General description is a young male up in the room in no distress. RESPIRATORY SYSTEM: Unlabored breathing. Clear to auscultation anteriorly. HEART: S1, S2. Regular rate and rhythm. ABDOMEN: Soft. No tenderness. LABS: The patient's creatinine is down to 1.9. Urine culture still pending. DIAGNOSTIC IMPRESSION AND PLAN: Patient admitted to hospital with multiple symptoms, the patient did have a recent UTI. Outpatient concern was Klebsiella ESBL and the patient seemed to have problems with Bactrim DS that he took in the outpatient setting for the same UTI. The patient seems to have shown clinical improvement. However, we are waiting for the urine culture to finalize to determine discharge antibiotics. Invanz dose will be adjusted up to 1 gram daily in view of improvement in his kidney function. Continue with supportive care. MMODL / IJN: [id number] / MEI
[2019-05-04] MEDS: HEPARIN SODIUM,PORCINE 5,000 UNIT/ML 1 ML VIAL SQ SCH ×2 (00:10→09:10)
[2019-05-04 07:15] LABS: African American GFR (CKD) >90 (>60 ml/min/1.73 sqM); Anion Gap 9 mmol/L; Blood Urea Nitrogen 40 mg/dL (9-20); Calcium 8.3 mg/dL (8.4-10.2); Carbon Dioxide 24 mmol/L (22-30); Chloride 107 mmol/L (98-107); Glucose 98 mg/dL (74-99); Non-African American GFR(CKD) >90 (>60 ml/min/1.73 sqM); Potassium 3.5 mmol/L (3.5-5.1); Sodium 140 mmol/L (137-145)
[2019-05-04] MEDS: DEXTROSE 5%-0.9% NACL 1,000 ML IV SCH ×2 (07:16→07:17)
[2019-05-04 07:23] VITALS: BP 109/78; PULSE 62; RESP 16; TEMP 98.1
[2019-05-04] MEDS ORDERED: ERTAPENEM 1 GM in SODIUM CHLORIDE 0.9% 50 ML IVPB SCH (09:00)
[2019-05-04] MEDS: PANTOPRAZOLE 40 MG/10 ML VIAL IV SCH (09:17)
--- NOTE | 2019-05-04 10:29 | P.PN ---
Subjective Progress Note Date: 05/04/19 Principal diagnosis: Acute renal failure Patient feels well today. Denies abdominal pain. Urine cultures did come back showing Klebsiella once again. Creatinine improved at 0.99. Tolerating liquids. Objective - Vital Signs Vital signs: Vital Signs Temp 98.1 F 05/04/19 07:19 Pulse 62 05/04/19 07:19 Resp 16 05/04/19 07:19 BP 109/78 05/04/19 07:19 Pulse Ox 95 05/04/19 07:19 Intake & Output 05/03/19 05/04/19 05/04/19 18:59 06:59 18:59 Intake Total 1200 500 Output Total 600 Balance 600 500 Intake: IV 1200 Dextrose 5%-0.9% NaCl 1, 1200 000 ml @ 150 mls/hr IV . Q6H40M [facility] Rx#:[id number] Intake, IV Titration 500 Amount Ertapenem 1 gm In Sodium 500 Chloride 0.9% 50 ml @ 100 mls/hr IVPB DAILY [facility] Rx #:[id number] Output: Urine 600 Other: Voiding Method Toilet Toilet Toilet # Voids 0 - Exam Abdomen: Soft, nontender, nondistended - Labs CBC & Chem 7: 05/01/19 17:30 05/04/19 06:34 Labs: Abnormal Lab Results - Last 24 Hours (Table) 05/04/19 Range/Units 06:34 BUN 40 H (9-20) mg/dL Calcium 8.3 L (8.4-10.2) mg/dL Microbiology - Last 24 Hours (Table) 05/02/19 03:54 Urine Culture - Final Urine,Voided Klebsiella pneumoniae 05/01/19 17:30 Blood Culture - Preliminary Blood No Growth after 48 hours Assessment and Plan (1) Acute renal failure Narrative/Plan: Continue antibiotics per infectious disease. Home antibiotics per them. Continued diet. Current Visit: Yes Status: Acute Code(s): N17.9 - ACUTE KIDNEY FAILURE, UNSPECIFIED SNOMED Code(s): 29831296
--- NOTE | 2019-05-04 10:41 | P.PN ---
Subjective Progress Note Date: 05/04/19 This is a 29-year-old male patient of Dr. Palomino with history of morbid obesity, hypertension, chronic lower back pain, chronic anxiety and panic attacks. On 04/07/2018, patient underwent gastric sleeve with Dr. Schofield. He did not have any postop complications and was discharged home on April 09. Patient one-week follow-up with Dr. Schofield in the bariatric center and was doing well at that time, eating and drinking, mild pain, no nausea or vomiting, no fever. On April 25, patient presented to [facility] emergency center due to hematuria and dysuria. Urinalysis was turbid and light bread, ketones trace, blood large, and nitrate negative, leukoesterase negative, RBCs greater than 182, wbc's greater than 182, diabetes comes many, squamous cells 7, bacteria moderate. Patient was placed on Bactrim for 7 day course and was discharged. He states that he had taken several days and then received a call from the ER and he was switched to Macrobid. After he started Macrobid he became nauseated with dry heaves and he was not eating or drinking and had significant lower oral intake. He then contacted Dr. Schofield due to nausea vomiting generalized malaise, chills. Creatinine was found to be abnormal and patient was instructed to come into the hospital for a direct admission. Lab work revealed normal white count of 10, hemoglobin 18.4, platelet count 152. B UN 72 and creatinine 3.85 with repeat this morning of BUN 73 and creatinine 5.16. Total bilirubin 1.6, AST 62, ALT [address] alkaline phosphatase [address] CT of the abdomen and pelvis without contrast revealed no abnormality with the kidneys or bladder. Probable postop changes. Hepatic steatosis. Highly dense material in the gallbladder may be due to vicarious excretion of contrast or possibly tumefactive sludge. Spleen is enlarged. Patient states that the nausea and vomiting have resolved after his and off Macrobid. He states he has had a weight loss of 33 pounds since bariatric surgery. Renal ultrasound normal. 05/03: Patient has been afebrile, heart rate 66, blood pressure 109/51, pulse ox 95% on room air. Repeat BUN 62, creatinine 1.99, potassium 4.0. CRISTO screen negative, double-stranded DNA antibody negative, complement C3 140, couple and C4 46.7 both are normal. Hepatitis panel negative. Patient has been cleared for discharge by nephrology. Patient will no longer require losartan at home as his blood pressure is on the lower side and improved secondary to weight loss. Dr. Jimenez to advise on antibiotics. 05/04: Patient has been afebrile, heart rate 62, blood pressure 109/78, pulse ox 95% on room air. Repeat lab work reveals normal electrolytes, BUN 40, creatinine 0.99. Urine culture is ESBL Klebsiella pneumoniae patient is anxious to be discharged home. Blood culture no growth at [address] Jimenez is following. Ertapenem dosing adjusted to 1 g due to improved renal function. Objective - Vital Signs Vital signs: Vital Signs Temp 98.1 F 05/04/19 07:19 Pulse 62 05/04/19 07:19 Resp 16 05/04/19 07:19 BP 109/78 05/04/19 07:19 Pulse Ox 95 05/04/19 07:19 Intake & Output 05/03/19 05/04/19 05/04/19 18:59 06:59 18:59 Intake Total 1200 500 Output Total 600 Balance 600 500 Intake: IV 1200 Dextrose 5%-0.9% NaCl 1, 1200 000 ml @ 150 mls/hr IV . Q6H40M [facility] Rx#:[id number] Intake, IV Titration 500 Amount Ertapenem 1 gm In Sodium 500 Chloride 0.9% 50 ml @ 100 mls/hr IVPB DAILY [facility] Rx #:[id number] Output: Urine 600 Other: Voiding Method Toilet Toilet Toilet # Voids 0 - Exam Review of Systems Constitutional: Denies fatigue, denies poor appetite, Reports weight loss, Denies chills, Denies fever Ears, nose, mouth and throat: Denies dysphagia, Denies headache, Denies nasal congestion, Denies nasal discharge, Denies sore throat Cardiovascular: Denies chest pain, Denies dyspnea on exertion, Denies lightheadedness, Denies orthopnea, Denies shortness of breath, Denies syncope Respiratory: Denies cough, Denies cough with sputum, Denies dyspnea, Denies excessive sputum, Denies hemoptysis, Denies home oxygen, Denies sleep apnea Gastrointestinal: Denies loss of appetite, denies nausea, denies vomiting, Denies abdominal pain, Denies diarrhea Genitourinary: Denies dysuria, denies hematuria Musculoskeletal: Denies frequent falls, Denies gait dysfunction, Denies muscle weakness, Denies myalgias Integumentary: Denies pruritus, Denies rash, Denies wounds Neurological: Denies numbness, Denies syncope, Denies weakness Psychiatric: Denies anxiety, Denies depression Endocrine: Denies fatigue, Denies weight change Physical exam: Gen: This is a morbidly obese 29-year-old male. Patient is resting chair and appears to be comfortable. HEENT: Head is atraumatic, normocephalic. Pupils equal, round. Sclerae is anicteric. NECK: Supple. No JVD. No lymphadenopathy. No thyromegaly. LUNGS: Clear to auscultation. No wheezes or rhonchi. No intercostal retractions. HEART: Regular rate and rhythm. No murmur. ABDOMEN: Soft. Bowel sounds are present. No masses. No tenderness. EXTREMITIES: No pedal edema. No calf tenderness. Dorsalis pedis +2 bilaterally. NEUROLOGICAL: Patient is awake, alert and oriented x3. Cranial nerves 2 through 12 are grossly intact. - Labs CBC & Chem 7: 05/01/19 17:30 05/04/19 06:34 Labs: Abnormal Lab Results - Last 24 Hours (Table) 05/04/19 Range/Units 06:34 BUN 40 H (9-20) mg/dL Calcium 8.3 L (8.4-10.2) mg/dL Microbiology - Last 24 Hours (Table) 05/01/19 17:30 Blood Culture - Preliminary Blood No Growth after 48 hours 05/02/19 03:54 Urine Culture - Preliminary Urine,Voided Gram Neg Bacilli Assessment and Plan Plan: 1. Acute kidney injury with ATN possibly related to combination of bactrim, ARB, nausea and vomiting due to macrobid and hypotension, resolved. Losartan on hold. IV fluids discontinued. Consult with nephrology appreciated. Patient will not be discharged home on losartan. 2. Acute ESBL Klebsiella pneumoniae urinary tract infection. Patient has been seen by Dr. Jimenez and started on Invanz increase dose to 1 g daily. 3. Hypertension, patient is currently hypotensive side. Hold losartan. Patient may not require antihypertensive medications secondary to weight loss. 4. Morbid obesity status post gastric sleeve on April 07. Patient has lost 33 pounds. 5. GI prophylaxis. Protonix. 6. DVT prophylaxis. Heparin. 7. Mild elevation in liver function tests. Continue to monitor. 8. Nausea and vomiting secondary to Macrobid, resolved. Discharge plan: Home Impression and plan of care have been directed as dictated by the signing physician. Akiko Cohen nurse practitioner acting as scribe for signing physician.
--- NOTE | 2019-05-04 12:57 | PN ---
PROGRESS NOTE DATE OF SERVICE: 05/04/2019 REASON FOR FOLLOWUP: ESBL Klebsiella urinary tract infection. INTERVAL HISTORY: The patient is currently afebrile, has been breathing comfortably. The patient denies having any chest pain. No shortness of breath or cough. No nausea or vomiting. No abdominal pain and no urinary symptoms. The patient is anxious to go home from yesterday. PHYSICAL EXAMINATION: Blood pressure 139/78 with a pulse of 62, temperature 98.1. He is 95% on room air. General description is a young male up in the bed in no distress. RESPIRATORY SYSTEM: Unlabored breathing. Clear to auscultation anteriorly. HEART: S1, S2. Regular rate and rhythm. ABDOMEN: Soft. No tenderness. LABS: Creatinine 0.9. Urine has been finalized as ESBL Klebsiella. DIAGNOSTIC IMPRESSION AND PLAN: Patient with ESBL Klebsiella urinary tract infection, possible cystitis. Clinically not behaving as a deep infection. Patient to stay in the hospital until tomorrow so a short course of IV Invanz could be arranged for the patient; however, the patient has been insisting on going home. He has been instructed three days of antibiotics may be enough for mild cystitis but not for deep infection. If he has any recurrence of his urinary symptoms to let us know right away. This has been discussed in detail with the patient and family as well as admitting physician. Continue with supportive care. MMKARRIEL / IJN: [id number] / MTDD
[2019-05-05 14:45] LABS: C-ANCA <1:20 Titer (<1:20)
--- NOTE | 2019-06-27 09:10 | P.DS ---
Providers Date of admission: 05/01/19 14:04 Attending physician: Todd Schofield Consults: 05/01/19 17:13 Consult Physician Routine Consulting Provider: Yohan Yousif Consult Reason/Comments: Elevated creatinine Do you want consulting provider notified?: Yes Consult Physician Routine Consulting Provider: Kahlil Jimenez Consult Reason/Comments: Urinary tract infection Do you want consulting provider notified?: Yes 05/01/19 17:17 Consult Physician Routine Consulting Provider: Cristobal Mathew Consult Reason/Comments: Medical management Do you want consulting provider notified?: Yes Primary care physician: Jose Palomino - Discharge Diagnosis(es) (1) Acute renal failure Patient admitted to the hospital with weakness, nausea vomiting, reflux, and recurrent UTI. Patient was found have significant renal dysfunction. Nephrology was consulted. Patient thankfully responded well to IV hydration. His symptoms all for the most part improved. Infectious disease also saw the patient for his UTI. He was kept on IV antibiotics but these were discontinued prior to discharge. Patient never had any significant abdominal pain. CAT scan did not show any evidence for leak for him his gastric sleeve. Patient was doing better and discharged home. Outpatient follow-up with myself and urology was advised. Status: Acute Plan - Discharge Summary Discharge Rx Participant: Yes New Discharge Prescriptions: Continue Omeprazole Magnesium [PriLOSEC OTC] 20 mg PO DAILY Discontinued Losartan Potassium 100 mg PO DAILY Discharge Medication List Omeprazole Magnesium [PriLOSEC OTC] 20 mg PO DAILY 05/01/19 [History] Follow up [facility](s[facility]Ref[place] [facility] [facility] [place]/06/19 Yohan Yousif DO [STAFF PHYSICIAN] - 1 Week Kahlil Jimenez MD [STAFF PHYSICIAN] - 1 Week Patient Instructions/Handouts: Urinary Tract Infection in Men (DC), Hematuria (GEN) Discharge Disposition: HOME SELF-CARE
== END 2019-05-04 14:53 | disposition home or self-care (01) ==
LOC: INTOOBSV 14:04 → 4SSUR 14:04 → UNDODISIN 05-04 14:53
PROVIDERS: ADMIT Surgery; ATTEND Surgery
DX: N17.0 Acute kidney failure with tubular necrosis (principal); E87.2 Acidosis; N39.0 Urinary tract infection, site not specified; K21.9 Gastro-esophageal reflux disease without esophagitis; Z87.440 Personal history of urinary (tract) infections; Z16.12 Extended spectrum beta lactamase (ESBL) resistance; Z68.44 Body mass index [BMI] 60.0-69.9, adult; K76.0 Fatty (change of) liver, not elsewhere classified; I95.9 Hypotension, unspecified; T36.8X5A Adverse effect of other systemic antibiotics, initial encounter; B96.1 Klebsiella pneumoniae [K. pneumoniae] as the cause of diseases classified elsewhere; E66.01 Morbid (severe) obesity due to excess calories; E86.0 Dehydration; F17.210 Nicotine dependence, cigarettes, uncomplicated; F41.0 Panic disorder [episodic paroxysmal anxiety]; I10 Essential (primary) hypertension; G89.29 Other chronic pain; M19.90 Unspecified osteoarthritis, unspecified site; M54.5 Low back pain; R16.1 Splenomegaly, not elsewhere classified; R31.9 Hematuria, unspecified; R94.5 Abnormal results of liver function studies; Z98.84 Bariatric surgery status; Z79.899 Other long term (current) drug therapy; Z88.0 Allergy status to penicillin; Z80.8 Family history of malignant neoplasm of other organs or systems; Z82.49 Family history of ischemic heart disease and other diseases of the circulatory system; Z83.3 Family history of diabetes mellitus
CPT/HCPCS: 96376 ×2; 96361 ×2; 96365; 96366 ×3; 96367; 96375; 86255; 86160 ×2; 80053; 80048 ×3; 80074; 83735; 84100; 85025; 81001; 87040; 87205; 86038; 86225; 87086; 87077; 87186; 76770; 74176; G0378 ×4; G0379; J0696; J1335 ×3; C9113 ×3

== ENCOUNTER → 2019-05-01 | Outpatient (CLI) | payer BC ==
[2019-05-01 13:33] LABS: HCT 54.8 % (39.0-53.0); HGB 18.4 gm/dL (13.0-17.5); MCH 29.3 pg (25.0-35.0); MCHC 33.5 g/dL (31.0-37.0); MCV 87.4 fL (80.0-100.0); Mean Platelet Volume 11.1; RBC 6.27 m/uL (4.30-5.90)
[2019-05-01 14:41] LABS: Platelet Count 152 k/uL (150-450)
[2019-05-01 15:26] LABS: Appearance,Urine Cloudy (Clear); Color,Urine Yellow; Glucose,Urine (UA) 4+ (Negative); Protein,Urine 1+ (Negative); Specific Gravity,Urine 1.015 (1.001-1.035)
[2019-05-01 15:27] LABS: Bilirubin,Urine Negative (Negative); Blood,Urine Small (Negative); Ketones,Urine Negative (Negative); Leukocyte Esterase,Urine Large (Negative); Nitrite,Urine Negative (Negative); Urobilinogen,Urine <2.0 mg/dL (<2.0)
[2019-05-01 15:28] LABS: RBC,Urine >182 /hpf (0-5)
[2019-05-01 15:29] LABS: Bacteria,Urine Many /hpf; Squamous Epithelial Cell,Urine 34 /hpf (0-4); WBC,Urine >182 /hpf (0-5)
[2019-05-01 15:30] LABS: Hyaline Casts,Urine 25 /lpf (0-2); Mucus,Urine Rare /hpf
== END | disposition home or self-care (01) ==
LOC: PROCWHC3 11:36
PROVIDERS: ATTEND Surgery
DX: E86.0 Dehydration (principal); R31.9 Hematuria, unspecified
CPT/HCPCS: 36415; 81001; 82565; 84520; 85027

== ENCOUNTER → 2019-05-06 | Outpatient (CLI) | payer BC ==
[2019-05-06 15:35] VITALS: BP 137/81; PULSE 52; RESP 16; TEMP 97.6; BMI 64.8
--- NOTE | 2019-05-06 16:28 | P.BASOAP ---
Subjective Progress Note Date: 05/06/19 Principal diagnosis: Morbid obesity Patient returns after recent hospitalization over the weekend. Patient was found to have acute renal failure. Etiology thought to be partially related to dehydration, hypotension from antihypertensive, antibiotics for recent urinary infection. Doing well at this time. Drinking 75 ounces of liquids daily. Denies dysuria. No fevers. No hematuria. No repeat labs since discharge 2 days ago. He is off antibiotics. States he is due to see nephrology in 1 week. Objective - Vital Signs Vital signs: Vital Signs Temp 97.6 F 05/06/19 15:33 Pulse 52 L 05/06/19 15:33 Resp 16 05/06/19 15:33 BP 137/81 05/06/19 15:33 Pulse Ox Intake & Output 05/05/19 05/06/19 05/06/19 18:59 06:59 18:59 Weight 199.127 kg - Exam Abdomen: Soft, nontender, nondistended Assessment/Plan (1) Morbid obesity with BMI of 70 and over, adult Narrative/Plan: Patient doing much better at this time. Continue to encourage increased hydration. Recommend follow-up with nephrology. Repeat labs next week. Follow-up 2 weeks. Plan: Date: 05/06/19 Initial Weight: 227.386 kg Initial BMI: 74.0 Current Weight: 199.127 kg Current BMI: 64.8 Type of Surgery: Total Volume in Band: Previous Volume: Volume Removed: Volume Added: Band Size:
== END | disposition home or self-care (01) ==
LOC: BARWHC3 14:54
PROVIDERS: ATTEND Surgery
DX: E66.01 Morbid (severe) obesity due to excess calories (principal); Z68.45 Body mass index [BMI] 70 or greater, adult
CPT/HCPCS: 97803; 99211

== ENCOUNTER → 2019-05-16 | Outpatient (CLI) | payer BC ==
[2019-05-16 15:29] LABS: HCT 50.3 % (39.0-53.0); HGB 16.5 gm/dL (13.0-17.5); MCH 28.9 pg (25.0-35.0); MCHC 32.8 g/dL (31.0-37.0); Platelet Count 178 k/uL (150-450); RBC 5.71 m/uL (4.30-5.90); RDW 14.6 % (11.5-15.5); WBC 11.6 k/uL (3.8-10.6)
[2019-05-16 19:24] LABS: African American GFR (CKD) 141.9 (60.0-200.0); Albumin 4.2 g/dL (3.80-4.90); Albumin/Globulin Ratio 1.45 (1.60-3.17); Anion Gap 13.4 mmol/L (4.00-12.00); BUN/Creat Ratio 11.25 Ratio (12.00-20.00); Calcium 9.2 mg/dL (8.7-10.3); Carbon Dioxide 23.6 mmol/L (21.6-31.8); Globulin 2.9 g/dL (1.6-3.3); Non-African American GFR(CKD) 122.4 (60.0-200.0); Potassium 3.7 mmol/L (3.5-5.5); Total Bilirubin 1.1 mg/dL (0.3-1.2); Total Protein 7.1 g/dL (6.2-8.2)
[2019-05-16 20:10] LABS: Folate, Serum 13.1 ng/mL
== END | disposition home or self-care (01) ==
LOC: LABWHC1 14:44
PROVIDERS: ATTEND Surgery
DX: K90.89 Other intestinal malabsorption (principal); E55.9 Vitamin D deficiency, unspecified
CPT/HCPCS: 36415; 80053; 82306; 82607; 82746; 83540; 84425; 85027

== ENCOUNTER → 2019-05-20 | Outpatient (CLI) | payer BC ==
[2019-05-20 14:18] VITALS: BP 140/85; RESP 16; TEMP 97.7; BMI 63.6
[2019-05-20 14:35] VITALS: PULSE 66
--- NOTE | 2019-05-20 14:38 | P.BASOAP ---
Subjective Progress Note Date: 05/20/19 Principal diagnosis: Morbid obesity Patient doing well today. No nausea or vomiting. No pain. Good urine output. No dysuria or hematuria. Vital signs are stable. Has more energy. Did not make his nephrology appointment. Says he is rescheduling. Recent labs noted. BUN and creatinine are normal from 05/15. Objective - Vital Signs Vital signs: Vital Signs Temp 97.7 F 05/20/19 14:15 Pulse 66 05/20/19 14:15 Resp 16 05/20/19 14:15 BP 140/85 05/20/19 14:15 Pulse Ox Intake & Output 05/19/19 05/20/19 05/20/19 18:59 06:59 18:59 Weight 195.498 kg - Exam Abdomen: Soft, nontender, nondistended Assessment/Plan (1) Morbid obesity with BMI of 70 and over, adult Narrative/Plan: Patient overall doing better. Continue dietary and exercise regimen. We'll start using the gym more. He will reschedule his nephrology visit. Recent labs reviewed. Plan follow-up 1 month. We will provide H. pylori treatment regimen next visit. Plan: Date: 05/20/19 Initial Weight: 227.386 kg Initial BMI: 74.0 Current Weight: 195.498 kg Current BMI: 63.6 Type of Surgery: Total Volume in Band: Previous Volume: Volume Removed: Volume Added: Band Size:
== END ==
LOC: BARWHC3 13:46
PROVIDERS: ATTEND Surgery
DX: E66.01 Morbid (severe) obesity due to excess calories (principal); Z68.44 Body mass index [BMI] 60.0-69.9, adult
CPT/HCPCS: 99211

== ENCOUNTER → 2019-09-30 | Outpatient (CLI) | payer BC ==
[2019-09-30 14:47] VITALS: BP 153/71; PULSE 71; TEMP 98.1; BMI 53.3
--- NOTE | 2019-09-30 20:12 | PN ---
PROGRESS NOTE DATE OF SERVICE: 09/30/2019. CHIEF COMPLAINT: GERD. INTERVAL HISTORY: Patient returns for re-evaluation. He was last seen in May. States he never did follow up with Nephrology. He is drinking quite a bit of liquids daily, between 60 and 100 ounces. Protein intake, he believes, is adequate. Denies nausea, vomiting. No GERD symptoms. Remains on antacids. He is due for lab work. PHYSICAL EXAMINATION: Abdomen is soft, nontender, nondistended. PLAN: Will check 6-month labs. Encouraged patient to still follow up with Nephrology, given the severity of his renal dysfunction during his admission. Will check urea breath test to evaluate for persistent H pylori infection. Followup 4 to 6 weeks. MMODL / IJN: [id number] /
== END | disposition home or self-care (01) ==
LOC: BARWHC3 13:41
PROVIDERS: ATTEND Surgery
DX: E66.01 Morbid (severe) obesity due to excess calories (principal); K21.9 Gastro-esophageal reflux disease without esophagitis; Z68.43 Body mass index [BMI] 50.0-59.9, adult
CPT/HCPCS: 97803; 99211

== ENCOUNTER 2019-10-13 17:31 | Emergency (ER) | payer BC ==
[2019-10-13 17:40] VITALS: BP 147/76; PULSE 60; RESP 18; TEMP 98.2
[2019-10-13] MEDS ORDERED: DIPH,PERTUS(ACELL)TETVAC-LF 0.5 ML VIAL IM ONE (17:51)
[2019-10-13] MEDS ORDERED: LIDOCAINE 1% INJ 10MG/ML (20 ML MDV) SQ ONE (17:52)
--- NOTE | 2019-10-13 18:06 | XR ---
EXAMINATION TYPE: XR finger LT DATE OF EXAM: 10/13/2019 COMPARISON: NONE HISTORY: Laceration TECHNIQUE: 3 views FINDINGS: I see no fracture nor dislocation. Joint spaces are normal. There are no erosions. There ar e no pathologic calcifications. IMPRESSION: Negative left index finger exam.
--- NOTE | 2019-10-13 19:03 | ED ---
Wound/Laceration HPI - General Chief Complaint: Wound/Laceration Stated Complaint: Finger Lac Time Seen by Provider: 10/13/19 17:45 Source: patient, RN notes reviewed Mode of arrival: ambulatory Limitations: no limitations - History of Present Illness Initial Comments: 29-year-old male presented from for finger laceration. Patient states he was using a chop saw states that his finger slipped causing a laceration to his left hand index finger is right-hand dominant. Patient states has full range of motion no active bleeding no paresthesias. - Related Data Home Medications Medication Instructions Recorded Confirmed Omeprazole Magnesium [PriLOSEC OTC] 20 mg PO DAILY 05/01/19 05/06/19 Allergies Allergy/AdvReac Type Severity Reaction Status Date / Time Penicillins Allergy Family Verified 10/13/19 17:40 History Review of Systems ROS Statement: Those systems with pertinent positive or pertinent negative responses have been documented in the HPI. ROS Other: All systems not noted in ROS Statement are negative. Past Medical History Past Medical History: Hypertension, Osteoarthritis (OA) Additional Past Medical History / Comment(s): low back pain, bilateral hips (L>R), knees (R>L), and ankles (pt believes his issues are due to his weight) History of Any Multi-Drug Resistant Organisms: ESBL Date of last positivie culture/infection: 04/25/19 ESBL Klebsiella MDRO Source:: Urine Past Surgical History: Adenoidectomy, Bariatric Surgery, Tonsillectomy Additional Past Surgical History / Comment(s): EGD sleeve gastrectomy 04-07-19 Past Anesthesia/Blood Transfusion Reactions: No Reported Reaction Additional Past Anesthesia/Blood Transfusion Reaction / Comment(s): No blood transfusion to date Past Psychological History: Anxiety Smoking Status: Current every day smoker Past Alcohol Use History: None Reported Past Drug Use History: None Reported - Past Family History Father Family Medical History: Cancer, Diabetes Mellitus, Hypertension Additional Family Medical History / Comment(s): Type 2 DM, throat cancer. Pts paternal grandfather had lung cancer, Type 2 DM, HTN. patients paternal uncle has CHF and Type 2 DM Mother Family Medical History: Cancer Additional Family Medical History / Comment(s): brain cancer. mat grandma brain cancer General Exam Limitations: no limitations General appearance: alert, in no apparent distress Respiratory exam: Present: normal lung sounds bilaterally. Absent: respiratory distress, wheezes, rales, rhonchi, stridor Cardiovascular Exam: Present: regular rate, normal rhythm, normal heart sounds. Absent: systolic murmur, diastolic murmur, rubs, gallop, clicks Extremities exam: Present: other (Left hand index finger there is a 3 cm laceration possible tendon laceration, full range of motion neurovascular intact full strength) Course Vital Signs 10/13/19 17:38 Temperature 98.2 F Pulse Rate 60 Respiratory 18 Rate Blood Pressure 147/76 O2 Sat by Pulse 95 Oximetry Procedures - Laceration Laceration #1 Consent Obtained: verbal consent Indication: laceration Site: hand (Left hand second digit) Size (cm): 3 Description: linear Depth: simple, single layer Anesthetic Used: lidocaine 1%, without epi Anesthesia Technique: local infiltration Amount (mls): 4 Pre-repair: wound explored, irrigated extensively Type of Sutures: nylon Size of Sutures: 4-0 Number of Sutures: 5 Technique: simple, interrupted Patient Tolerated Procedure: well, no complications Additional Comments: As possible tendon laceration. Medical Decision Making - Medical Decision Making 29-year-old presented for finger laceration there is extensive laceration over the finger this was approximated no bony injury. Patient's tetanus is updated there is concern for tendon lacerations patient was splinted and will follow-up with orthopedics. Patient stressed the importance of following up with orthopedics. Disposition Clinical Impression: Laceration of finger, left Disposition: HOME SELF-CARE Condition: Stable Instructions (If sedation given, give patient instructions): Care For Your Stitches (ED), Finger Laceration (ED) Additional Instructions: Please wear sling and follow-up with orthopedics as directed for possible tendon laceration.Please return to the Emergency Department if symptoms worsen or any other concerns. Is patient prescribed a controlled substance at d/c from ED?: No Referrals: Jose Palomino DO [Primary Care Provider] - 1-2 days Terry Mccarthy DO [Medical Doctor] - 1-2 days Time of Disposition: 19:03
== END 2019-10-13 19:13 | disposition home or self-care (01) ==
LOC: EC 17:31
DX: S61.211A Laceration without foreign body of left index finger without damage to nail, initial encounter (principal); F17.200 Nicotine dependence, unspecified, uncomplicated; Z88.0 Allergy status to penicillin; Z23 Encounter for immunization; W26.8XXA Contact with other sharp object(s), not elsewhere classified, initial encounter; Y93.89 Activity, other specified; Y92.009 Unspecified place in unspecified non-institutional (private) residence as the place of occurrence of the external cause
CPT/HCPCS: 73140; 90715; 99283; 90471; 12002; J2001

== ENCOUNTER → 2019-12-02 | Outpatient (CLI) | payer BC ==
[2019-12-02 14:42] VITALS: BP 142/74; PULSE 74; TEMP 98.1; BMI 49.6
--- NOTE | 2019-12-02 14:42 | P.BASOAP ---
Subjective Progress Note Date: 12/02/19 Principal diagnosis: Morbid obesity Patient returns for reevaluation. Last seen in May. Doing well. He has lost over 200 pounds now. Today's weight 336. He is ambulating quite a bit. 10,000 steps on average daily. Recently joined a gym. He has been snacking a bit more lately. He has not had any labs drawn recently. 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 Complaining of excess skin with skin breakdown occasionally. Using a variety of different skin creams. Objective - Vital Signs Vital signs: Intake & Output 12/01/19 12/02/19 12/02/19 18:59 06:59 18:59 Weight 152.407 kg - Exam Abdomen: Soft, nontender, nondistended, large pannus with rash Assessment/Plan (1) Morbid obesity with BMI of 70 and over, adult Narrative/Plan: Patient overall doing well. Continue dietary and exercise regimen. Check routine labs at this time. Follow-up this March. Continue increasing exercise. Plan: Date: Initial Weight: 227.386 kg Initial BMI: Current Weight: 152.407 kg Current BMI: Type of Surgery: Total Volume in Band: Previous Volume: Volume Removed: Volume Added: Band Size:
== END | disposition home or self-care (01) ==
LOC: BARWHC3 13:22
PROVIDERS: ATTEND Surgery
DX: E66.01 Morbid (severe) obesity due to excess calories (principal); Z68.45 Body mass index [BMI] 70 or greater, adult
CPT/HCPCS: 97803; 99211

== ENCOUNTER → 2020-04-06 | Outpatient (CLI) | payer BC ==
[2020-04-06 13:31] VITALS: BP 156/96; PULSE 81; TEMP 98.7; BMI 50.1
[2020-04-06 14:42] LABS: HCT 47.8 % (39.0-53.0); HGB 16.3 gm/dL (13.0-17.5); MCH 30.9 pg (25.0-35.0); MCHC 34.2 g/dL (31.0-37.0); MCV 90.3 fL (80.0-100.0); Mean Platelet Volume 8.2; Platelet Count 203 k/uL (150-450); RBC 5.29 m/uL (4.30-5.90); RDW 12.9 % (11.5-15.5)
--- NOTE | 2020-04-06 16:25 | P.BASOAP ---
Subjective Progress Note Date: 04/06/20 Patient returns for recheck. Last seen in November. Weight 1 up by 3 pounds however the patient is doing a lot more exercising and heavy weights. Still hasn't had his labs done. This is his 1 recheck. Appetite slightly increased although still has significant restriction. Excellent energy levels. Patient complaining of some boils along his gluteal and groin folds. Patient also complaining of some mild epigastric pain and at times feels a lump above his umbilicus. Objective - Vital Signs Vital signs: Vital Signs Temp 98.7 F 04/06/20 13:29 Pulse 81 04/06/20 13:29 Resp BP 156/96 04/06/20 13:29 Pulse Ox Intake & Output 04/05/20 04/06/20 04/06/20 18:59 06:59 18:59 Weight 153.768 kg - Exam Abdomen: Soft, nontender, nondistended - Labs CBC & Chem 7: 04/06/20 14:11 Assessment/Plan (1) Morbid obesity with BMI of 70 and over, adult Narrative/Plan: Patient overall doing fairly well. Continue dietary and exercise regimen. Monitor swelling above umbilicus. Check 1 labs. No palpable hernia at this time. Return visit 3 months. We'll make consultation for patient to see dermatology. Likely will arrange for plastic surgery evaluation after next visit. Plan: Date: 04/06/20 Initial Weight: 227.386 kg Initial BMI: 74.0 Current Weight: 153.768 kg Current BMI: 50.1 Type of Surgery: Total Volume in Band: Previous Volume: Volume Removed: Volume Added: Band Size:
[2020-04-06 21:23] LABS: African American GFR (CKD) 158.6 (60.0-200.0); Albumin 4.4 g/dL (3.80-4.90); Albumin/Globulin Ratio 1.69 (1.60-3.17); Anion Gap 9.8 mmol/L (4.00-12.00); BUN/Creat Ratio 28.33 Ratio (12.00-20.00); Calcium 9.1 mg/dL (8.7-10.3); Carbon Dioxide 24.2 mmol/L (21.6-31.8); Globulin 2.6 g/dL (1.6-3.3); Non-African American GFR(CKD) 136.8 (60.0-200.0); Potassium 4.3 mmol/L (3.5-5.5); Total Bilirubin 0.6 mg/dL (0.2-1.2)
[2020-04-06 22:06] LABS: Folate, Serum 17.6 ng/mL
== END | disposition home or self-care (01) ==
LOC: BARWHC3 13:08
PROVIDERS: ATTEND Surgery
DX: E66.01 Morbid (severe) obesity due to excess calories (principal); Z68.45 Body mass index [BMI] 70 or greater, adult
CPT/HCPCS: 80053; 82306; 82607; 82746; 83540; 84425; 85027; 97803; 99211